=== PATIENT | male | born 1950 | race Caucasian/White ===

== ENCOUNTER 2021-05-14 05:24 | Observation (INO) ==
[2021-05-14] MEDS ORDERED: SODIUM CHLORIDE 0.9% 1000ML 1,000 ML IV ONE ×2 (05:47→06:04)
--- NOTE | 2021-05-14 05:51 | Emergency Department Note ---
Impression & Plan Sepsis, Leukocytosis, Acidosis, lactic, Syncope ED Provider Note Name: DEV DUBOSE Age: 71 Sex: M Arrives Via: Ambulance Informant: Patient, , EMS, Daughter ED Provider: Navdeep Vega MD Chief Complaint: Weakness Impression: See Above Medical Decision Makin yr old male with history JOSE, Allergies, GERD, HTN, HLP, DMII who had diarrhea/nausea illness last week, with initial resolution, but then rapid worsening over last few hours. Syncope with seizure like activity while help him up on toilet earlier. On arrival patient appears ill, dehydrated and slightly confused. Given IV fluids and work-up initiated. Labs with WBC elevation and thus blood cultures, lactate and further fluids ordered. Patient vastly improved with IV fluids. With symptoms felt that CT a/p indicated which reveals no acute findings. CT head already had been done and negative. Patient given empiric abx once lactate returned elevated though by this time he appears quite well and no distress. Patient breathing comfortably without further abdominal pain. Prior Medical Record and Triage/Nursing Notes reviewed by Me Additional history obtained from chart Given the patients BMI >30, IBW was used to calculate the 30ml/kg fluid bolus. Differentials:Vasovagal event, dehydration, infection, hypoglycemia, el ectrolyte abnormalities, cardiac sources, intracerebral event, pulmonary embolism, seizure, toxicologic, neurologic, as well as other pathologies. Vital Signs: reviewed and remarkable for no significant abnormalities Interventions: saline lock, 2.5L IV, zosyn iv, vanco iv Labs:Reviewed and remarkable for wbc elevation, lactic acid elevation Imaging:X ray results are stated below per my interpretation: Chest: 1 view: No infiltrate, no effusion, normal cardiac border. [facility] Radiologist interpretation reviewed by me: CT head no acute findings. EKG:Per My Interpretation: Indication Syncope: NSR 92 bpm, qtc 462. No Ectopy. No Ischemia. Compared to EKG 03/07/08, no significant changes. Cardiac/Tele Monitoring: Cardiac Monitoring: An Order was placed for continuous cardiac monitoring. The monitor shows a rate of 90 with a normal sinus rhythm. Consults:Dr Salome GREENE Hospitalist Plan: Disposition:Hospitalization. Condition: Good History of Present Illness:71 yr old male arrives for evaluation of syncope. Patient with 1 week of nausea, vomiting diarrhea that had started resolving and he felt well the last 2 days. Was at dinner without issue last night. Awoke at 1:30am with nausea and abdominal discomfort. Notes went to toilet and large diarrheal bowel movement. witnessed patient with 3-5 minute syncope event where he slumped against wall while sitting on toilet. They tried keeping him from falling and he has brief seizure like episodes. Slowly started coming too after this was diaphoretic and confused. EMS arrived and patient received 4mg IV Zofran and 500ml IV fluids with improvement in mental status. No head injury, headache, neck pain. He denies recent chest pain, sob, back pain, flank pain, urinary symptoms, leg swelling, rashes, fevers, chills, nor other symptoms. No history of similar Notes lightheaded with sitting up, better with laying down. Currently without nausea nor abdominal discomfort. ROS: See above HPI for pertinent positives & negatives. A total of 10 systems reviewed and were otherwise negative. Past Medical History:JOSE, Allergies, GERD, HTN, HLP, DMII Past Surgical History:Cardiac cath Family History:See Below Social History:See Below Home Medications:See Below Allergies:NKDA Vitals:Blood Pressure: 149/72, Pulse 87, RR 18, T 36.5C, O2 95% on RA Physical Exam: GENERAL: Patient is tired and dehydrated appearing and in minimal distress. Mildly pale. EYES: No scleral icterus, unremarkable pupils. ENT: Mucous membranes moist, no nasal congestion. NECK: No masses appreciated, nomeningismus, trachea is midline. RESPIRATORY: No dyspnea. Clear to auscultation and equal bilaterally. No wheeze, no rhonchi. CARDIOVASCULAR: Regular rate and rhythm.No murmurs, rubs, gallops appreciated. GASTROINTESTINAL: Abdomen soft, non-tender, no peritonitis.Bowel sounds positive and hyperactive.No masses appreciated. BACK: No midline tenderness, no CVA tenderness EXTREMITIES: Normal motion all extremities, no cyanosis, no edema. NEUROLOGIC: Alert and oriented though mildly confused/slow to respond, no acute motor or sensory deficits, no focal weakness, cranial nerves grossly intact. SKIN: No rash, no jaundice, no diaphoresis. PSYCH: Appropriate GCS: 15 ED Course: Times/Reassessments: Vastly improved with fluid resus, no headache, breathing comfortably and no further abdominal discomfort. Critical Care: I have personally spent 30 minutes of critical care time in the direct management of this patient. Sepsis requiring fluid resus and critical manage ment. This was a life/limb threatening event. This 30 minutes is in excess of all separately billable procedures. Navdeep Vega MD Past Med/Surg History Medical History Allergic rhinitis Benign essential hypertension Diabetes mellitus History of esophageal reflux Hypercholesterolemia Surgical History H/O cardiac catheterization H/O cystoscopy Family History Brother Nephrolithiasis Depression Cancer Father No problems noted. Aunt Cancer Social History Smoking Status: Never smoker Second Hand Exposure: No; Hx Alcohol Use: Yes Alcohol type: beer and hard liquor Hx Substance Use: No Preferred Language: Marshallese Communication Ability: Effective Hearing Ability: Use of Hearing Aid Medical Translator Required: No Beliefs That Will Affect Care: None marital status: Current Living Situation: Spouse Current Living Situation Comment: Lives with current occupational status: retired How many Children do You have: 3 Feels Safe at Home: Yes Childhood Exposure to Second-Hand Smoke: No Physical Activity Frequency: 1-2 Times per Week Seatbelt Use: always Sunscreen Use: Yes Assistive Devices: CPAP and Hearing Aid - Bilateral Allergies Allergies Allergy/AdvReac Type Severity Reaction Status Date / Time No Known Allergies Allergy Unknown Verified 05/14/21 07:58 Home Meds Home Medications Medication Instructions Recorded Confirmed ketoconazole 2 % shampoo 1 appln TOPICAL .COMPLEX ml 06/07/19 05/14/21 latanoprost 0.005 % eye drops 1 drops OPB HS #1 ml 07/20/19 05/14/21 (Xalatan) aspirin 81 mg tablet,delayed 81 mg PO QAM 05/14/21 05/14/21 release (Aspirin Low Dose) atorvastatin 40 mg tablet (Lipitor) 40 mg PO QAM 05/14/21 05/14/21 cholecalciferol (vitamin D3) 25 25 mcg PO QAM 05/14/21 05/14/21 mcg (1,000 unit) capsule (Vitamin D3) hydrochlorothiazide 25 mg tablet 25 mg PO QAM 05/14/21 05/14/21 lisinopril 30 mg tablet (Zestril) 30 mg PO HS 05/14/21 05/14/21 Previous Rx's Medication Instructions Recorded blood sugar diagnostic (True #100 ea 09/04/20 Metrix Glucose Test Strip) semaglutide (Ozempic) 0.25 mg SQ .weekly #1.5 ml 10/10/20 metformin 1,000 mg tablet 1,000 mg PO BID #180 tab 04/05/21 Results & Data (ED) Vital Signs Vital Signs - 24 hr 05/14/21 06:49 05/14/21 06:50 05/14/21 07:00 Pulse Rate 87 86 Pulse Rate [Finger] 87 Pulse Rate from SpO2 Sensor 87 86 Respiratory Rate 15 18 16 Respiratory Depth Normal Blood Pressure 149/72 H 144/70 H Blood Pressure [Right Arm] 149/72 H Blood Pressure Mean 97 94 Blood Pressure Mean [Right Arm] 97 Pulse Oximetry 96 95 96 Oxygen Delivery Method Room Air 05/14/21 07:30 Pulse Rate 84 Pulse Rate [Finger] Pulse Rate from SpO2 Sensor 84 Respiratory Rate 13 Respiratory Depth Blood Pressure 141/67 H Blood Pressure [Right Arm] Blood Pressure Mean 91 Blood Pressure Mean [Right Arm] Pulse Oximetry 95 Oxygen Delivery Method Laboratory Data Result diagrams: 05/14/21 05:36 05/14/21 05:36 Lab Results 05/14/21 05/14/21 05/14/21 Range/Units 05:36 05:36 05:40 WBC 23.29 H (4.8-10.8) K/uL RBC 4.69 L (4.7-6.1) M/uL Hgb 14.2 (14.0-18.0) g/dL Hct 44.0 (42-52) % MCV 93.8 (80-100) fL MCH 30.3 (25-34) pg MCHC 32.3 (32-36) g/dL RDW Std Deviation 49.8 H (36.4-46.3) fL RDW Coeff of Lauren 14.6 H (11.5-14.5) % Plt Count 274 (130-400) K/uL MPV 10.6 H (7.4-10.4) fL Immature Gran % (Auto) 0.9 % Neut % (Auto) 71.0 % Lymph % (Auto) 9.1 % [place] % (Auto) 7.7 % Eos % (Auto) 11.1 % Baso % (Auto) 0.2 % Neut # (Auto) 16.53 H (1.4-6.5) K/uL Lymph # (Auto) 2.11 (1.2-3.4) K/uL [place] # (Auto) 1.79 H (0.11-0.59) K/uL Eos # (Auto) 2.59 H (0-0.5) K/uL Baso # (Auto) 0.05 (0-0.2) K/uL Immature Gran # (Auto) 0.22 H (0.00-0.02) K/uL Sodium 135 L (136-145) mmol/L Potassium 4.2 (3.5-5.1) mmol/L Chloride 101 (98-107) mmol/L Carbon Dioxide 25 (21-32) mmol/L Anion Gap 9.0 (3-11) BUN 25 H (7-18) mg/dl Creatinine 1.55 H (0.6-1.4) mg/dl Est Cr Clr Drug Dosing Not Reportable Est GFR ( Amer) 50.7 ml/min Est GFR (Non-Af Amer) 43.8 ml/min BUN/Creatinine Ratio 16.3 (10-20) Glucose 199 H (70-99) mg/dl POC Glucose (70-99) mg/dl Lactate (0.4-2.0) mmol/L Calcium 9.1 (8.5-10.1) mg/dl Magnesium 1.7 L (1.8-2.4) mg/dl Total Bilirubin 0.4 (0.2-1) mg/dl Direct Bilirubin < 0.1 (0-0.2) mg/dl AST 42 H (15-37) U/L ALT 72 (12-78) U/L Alkaline Phosphatase 88 (45-117) U/L Troponin I < 0.015 (0-0.045) ng/ml Total Protein 8.4 H (6.4-8.2) gm/dl Albumin 3.7 (3.4-5.0) gm/dl Lipase 185 (73-393) U/L Urine Color Urine Appearance (Clear) Urine pH (4.5-7.5) Ur Specific [place] (1.000-1.030) Urine Protein (Negative) Urine Glucose (UA) (Negative) Urine Ketones (Negative) Urine Blood (Negative) Urine Nitrite (Negative) Urine Bilirubin (Negative) Urine Urobilinogen (Negative) Ur Leukocyte Esterase (Negative) Lyme Disease IgG Ab Negative (Negative) Lyme Disease IgM Ab Negative (Negative) COVID-19 Eval Order SARS-CoV-2 (PCR) (Negative) 05/14/21 05/14/21 05/14/21 Range/Units 05:43 06:14 06:14 WBC (4.8-10.8) K/uL RBC (4.7-6.1) M/uL Hgb (14.0-18.0) g/dL Hct (42-52) % MCV (80-100) fL MCH (25-34) pg MCHC (32-36) g/dL RDW Std Deviation (36.4-46.3) fL RDW Coeff of Lauren (11.5-14.5) % Plt Count (130-400) K/uL MPV (7.4-10.4) fL Immature Gran % (Auto) % Neut % (Auto) % Lymph % (Auto) % [place] % (Auto) % Eos % (Auto) % Baso % (Auto) % Neut # (Auto) (1.4-6.5) K/uL Lymph # (Auto) (1.2-3.4) K/uL [place] # (Auto) (0.11-0.59) K/uL Eos # (Auto) (0-0.5) K/uL Baso # (Auto) (0-0.2) K/uL Immature Gran # (Auto) (0.00-0.02) K/uL Sodium (136-145) mmol/L Potassium (3.5-5.1) mmol/L Chloride (98-107) mmol/L Carbon Dioxide (21-32) mmol/L Anion Gap (3-11) BUN (7-18) mg/dl Creatinine (0.6-1.4) mg/dl Est Cr Clr Drug Dosing Est GFR ( Amer) ml/min Est GFR (Non-Af Amer) ml/min BUN/Creatinine Ratio (10-20) Glucose (70-99) mg/dl POC Glucose 169 H (70-99) mg/dl Lactate (0.4-2.0) mmol/L Calcium (8.5-10.1) mg/dl Magnesium (1.8-2.4) mg/dl Total Bilirubin (0.2-1) mg/dl Direct Bilirubin (0-0.2) mg/dl AST (15-37) U/L ALT (12-78) U/L Alkaline Phosphatase (45-117) U/L Troponin I (0-0.045) ng/ml Total Protein (6.4-8.2) gm/dl Albumin (3.4-5.0) gm/dl Lipase (73-393) U/L Urine Color Urine Appearance (Clear) Urine pH (4.5-7.5) Ur Specific [place] (1.000-1.030) Urine Protein (Negative) Urine Glucose (UA) (Negative) Urine Ketones (Negative) Urine Blood (Negative) Urine Nitrite (Negative) Urine Bilirubin (Negative) Urine Urobilinogen (Negative) Ur Leukocyte Esterase (Negative) Lyme Disease IgG Ab (Negative) Lyme Disease IgM Ab (Negative) COVID-19 Eval Order Covid19 at [facility] SARS-CoV-2 (PCR) NEGATIVE (Negative) 05/14/21 05/14/21 Range/Units 06:49 07:40 WBC (4.8-10.8) K/uL RBC (4.7-6.1) M/uL Hgb (14.0-18.0) g/dL Hct (42-52) % MCV (80-100) fL MCH (25-34) pg MCHC (32-36) g/dL RDW Std Deviation (36.4-46.3) fL RDW Coeff of Lauren (11.5-14.5) % Plt Count (130-400) K/uL MPV (7.4-10.4) fL Immature Gran % (Auto) % Neut % (Auto) % Lymph % (Auto) % [place] % (Auto) % Eos % (Auto) % Baso % (Auto) % Neut # (Auto) (1.4-6.5) K/uL Lymph # (Auto) (1.2-3.4) K/uL [place] # (Auto) (0.11-0.59) K/uL Eos # (Auto) (0-0.5) K/uL Baso # (Auto) (0-0.2) K/uL Immature Gran # (Auto) (0.00-0.02) K/uL Sodium (136-145) mmol/L Potassium (3.5-5.1) mmol/L Chloride (98-107) mmol/L Carbon Dioxide (21-32) mmol/L Anion Gap (3-11) BUN (7-18) mg/dl Creatinine (0.6-1.4) mg/dl Est Cr Clr Drug Dosing Est GFR ( Amer) ml/min Est GFR (Non-Af Amer) ml/min BUN/Creatinine Ratio (10-20) Glucose (70-99) mg/dl POC Glucose (70-99) mg/dl Lactate 3.5 H* (0.4-2.0) mmol/L Calcium (8.5-10.1) mg/dl Magnesium (1.8-2.4) mg/dl Total Bilirubin (0.2-1) mg/dl Direct Bilirubin (0-0.2) mg/dl AST (15-37) U/L ALT (12-78) U/L Alkaline Phosphatase (45-117) U/L Troponin I (0-0.045) ng/ml Total Protein (6.4-8.2) gm/dl Albumin (3.4-5.0) gm/dl Lipase (73-393) U/L Urine Color Yellow Urine Appearance Clear (Clear) Urine pH 5.5 (4.5-7.5) Ur Specific [place] 1.044 H (1.000-1.030) Urine Protein Negative (Negative) Urine Glucose (UA) Negative (Negative) Urine Ketones Negative (Negative) Urine Blood Negative (Negative) Urine Nitrite Negative (Negative) Urine Bilirubin Negative (Negative) Urine Urobilinogen Negative (Negative) Ur Leukocyte Esterase Negative (Negative) Lyme Disease IgG Ab (Negative) Lyme Disease IgM Ab (Negative) COVID-19 Eval Order SARS-CoV-2 (PCR) (Negative) Administered Medications Aspirin (Aspirin 81 Mg Ectab) [facility] [place] Stop: 06/13/21 14:59 Last Admin: 05/14/21 16:02 Dose: 81 mg Documented by: [id number] Atorvastatin Calcium (Atorvastatin 40 Mg Tab) 40 mg PO QAM [facility] Stop: 06/13/21 14:59 Last Admin: 05/14/21 16:03 Dose: 40 mg Documented by: [id number] Enoxaparin Sodium (Enoxaparin Inj 40 Mg/0.4 Ml Syr) 40 mg SQ Q24H [facility] Stop: 06/13/21 14:59 Last Admin: 05/14/21 16:03 Dose: 40 mg Documented by: [id number] Pantoprazole Sodium 40 mg/ (Syringe) 10 mls @ 5 mls/min IV BID [facility] Stop: 06/13/21 20:59 Last Admin: 05/14/21 21:08 Dose: 5 mls/min Documented by: [id number] Piperacillin Sod/Tazobactam (Sod 3.375 gm/ Dextrose) 115 mls @ 28.75 mls/hr IV Q8H [facility]; Protocol Stop: 05/24/21 13:59 Last Infusion: 05/15/21 01:01 Dose: 0 mls/hr Documented by: [id number] Admin: 05/14/21 21:09 Dose: 28.8 mls/hr Documented by: [id number] Infusion: 05/14/21 20:00 Dose: 0 mls/hr Documented by: [id number] Admin: 05/14/21 16:02 Dose: 28.8 mls/hr Documented by: [id number] Vancomycin HCl 1,000 mg/ (Sodium Chloride) 270 mls @ 200 mls/hr IV Q18H [facility] Stop: 05/25/21 01:59 Last Infusion: 05/15/21 03:20 Dose: 0 mls/hr Documented by: [id number] Admin: 05/15/21 01:59 Dose: 200 mls/hr Documented by: [id number] Insulin Aspart (Insulin Aspart 100 Units/Ml 3 Ml Pen) 0 units SC Q6 [facility] Stop: 06/13/21 11:59 Last Admin: 05/15/21 00:37 Dose: Not Given Documented by: [id number] Cosigned by: [id number] Admin: 05/14/21 18:06 Dose: Not Given Documented by: [id number] Admin: 05/14/21 13:55 Dose: Not Given Documented by: [id number] Insulin Glargine (Insulin Glargine Solostar 100 Units/Ml 3 Ml Pen) 0 units SC B ID [facility]; Protocol Stop: 06/13/21 20:59 Last Admin: 05/14/21 21:40 Dose: Not Given Documented by: [id number] Latanoprost (Latanoprost 0.005% Op Soln 2.5 Ml Btl) 1 drops OP [facility] Stop: 06/13/21 20:59 Last Admin: 05/14/21 21:08 Dose: 1 drops Documented by: [id number] Lisinopril (Lisinopril 10 Mg Tab) 10 mg PO [facility] Stop: 06/13/21 20:59 Last Admin: 05/14/21 21:08 Dose: 10 mg Documented by: [id number] Discontinued Medications Sodium Chloride (Nss 1000ml) 1,000 mls @ 999 mls/hr IV .Q1H1M ONE Stop: 05/14/21 06:47 Last Infusion: 05/14/21 08:22 Dose: 0 mls/hr Documented by: [id number] Admin: 05/14/21 05:54 Dose: 999 mls/hr Documented by: [id number] Sodium Chloride (Nss 1000ml) 1,000 mls @ 999 mls/hr IV .Q1H1M ONE Stop: 05/14/21 07:04 Last Infusion: 05/14/21 08:22 Dose: 0 mls/hr Documented by: [id number] Admin: 05/14/21 06:42 Dose: 999 mls/hr Documented by: [id number] Sodium Chloride (Nss 1000ml) 500 mls @ 999 mls/hr IV .Q31M ONE Stop: 05/14/21 07:53 Last Infusion: 05/14/21 08:22 Dose: 0 mls/hr Documented by: [id number] Admin: 05/14/21 07:45 Dose: 999 mls/hr Documented by: [id number] Piperacillin Sod/Tazobactam Sod (Zosyn) 4.5 gm in 120 mls @ 240 mls/hr IV NOW ONE Stop: 05/14/21 07:52 Last Infusion: 05/14/21 08:22 Dose: 0 mls/hr Documented by: [id number] Admin: 05/14/21 07:45 Dose: 240 mls/hr Documented by: [id number] Vancomycin HCl 1,750 mg/ (Sodium Chloride) 535 mls @ 200 mls/hr IV NOW ONE Stop: 05/14/21 10:03 Last Infusion: 05/14/21 11:42 Dose: 0 mls/hr Documented by: [id number] Admin: 05/14/21 08:33 Dose: 200 mls/hr Documented by: [id number] Sodium Chloride (Nss 1000ml) 1,000 mls @ 100 mls/hr IV .Q10H [facility]EV[facility] Stop: 05/14/21 18:44 Last Infusion: 05/14/21 23:00 Dose: 0 mls/hr Documented by: [id number] Admin: 05/14/21 11:41 Dose: 100 mls/hr Documented by: [id number] Magnesium Sulfate/Dextrose (Magnesium Sulfate / D5w) 1 gm in 100 mls @ 50 mls/hr IV 1500 ONE Stop: 05/14/21 16:59 Last Infusion: 05/14/21 18:06 Dose: 0 mls/hr Documented by: [id number] Admin: 05/14/21 16:02 Dose: 50 mls/hr Documented by: [id number] Ioversol (Optiray 320 100ml) 100 ml IV ONCE ONE Stop: 05/14/21 06:38 Last Admin: 05/14/21 06:37 Dose: 93 ml Documented by: [id number] Imaging Data Radiologist's Impression: Chest X-Ray 05/14/21 05:46 XR chest 1V portable CLINICAL HISTORY: syncope, ams COMPARISON STUDY: Chest radiograph March 07, 2008. FINDINGS: Lung volumes are normal. Lungs are clear. There is no pneumothorax or pleural effusion. Cardiac size is normal. Mediastinal contours are normal. There is no evidence for pulmonary edema. IMPRESSION: No acute cardiopulmonary findings. ACT 112: Negative or not required by law. Electronically signed by: Pete Rivers M.D. 05/14/2021 6:[address] 05/14/21 05:46 CT OF THE HEAD WITHOUT CONTRAST CLINICAL HISTORY: syncope, seizure COMPARISON STUDY: No previous studies for comparison. CT DOSE: 614.27 mGy.cm TECHNIQUE: Helical axial images of the head were obtained without IV contrast. Automated exposure control was utilized for the study. A dose lowering technique was utilized adhering to the principles of ALARA. FINDINGS: No acute intracranial hemorrhage, midline shift or mass effect is present. The ventricular system is unremarkable. The basal cisterns are patent. No extra-axial collections are present. There are no findings to suggest acute dural sinus thrombosis or acute territorial infarct. No significant calvarial abnormalities are present. Visualized portions of the sinuses and mastoid air cells are clear. IMPRESSION: No acute intracranial findings. ACT 112: Negative or not required by law. Electronically signed by: Pete Rivers M.D. 05/14/2021 6:33 AM Discharge Plan Visit Data Chief Complaint: Diarrhea Stated Complaint: FLU LIKE SYMPTOMS ED Provider: Navdeep Vega Discharge Problem: Sepsis, Leukocytosis, Acidosis, lactic, Syncope Patient Disposition: Admitted As Inpatient Discharge Instructions Interventions: ED Discharge Assessment Last Done: 05/14/21 11:05 Discharge Problem: Sepsis Qualifiers: Sepsis type: sepsis due to unspecified organism Sepsis acute organ dysfunction status: with acute organ dysfunction Severe sepsis acute organ dysfunction type: encephalopathy Severe sepsis shock status: without septic shock Qualified Code(s): A41.9 - Sepsis, unspecified organism Leukocytosis Qualifiers: Leukocytosis type: unspecified Qualified Code(s): D72.829 - Elevated white blood cell count, unspecified Syncope Qualifiers: Syncope type: unspecified Qualified Code(s): R55 - Syncope and collapse
[2021-05-14 05:54] LABS: Basophils # (auto) 0.05 K/uL (0-0.2); Basophils % (auto) 0.2 %; Eosinophils # (auto) 2.59 K/uL (0-0.5); Eosinophils % (auto) 11.1 %; Hemoglobin 14.2 g/dL (14.0-18.0); Immature Granulocytes # (auto) 0.22 K/uL (0.00-0.02); Immature Granulocytes % (auto) 0.9 %; Lymphocytes # (auto) 2.11 K/uL (1.2-3.4); Lymphocytes % (auto) 9.1 %; Mean Corpuscular Hemoglobin 30.3 pg (25-34); Mean Corpuscular Hgb Conc 32.3 g/dL (32-36); Mean Corpuscular Volume 93.8 fL (80-100); Mean Platelet Volume 10.6 fL (7.4-10.4); Monocytes # (auto) 1.79 K/uL (0.11-0.59); Monocytes % (auto) 7.7 %; Neutrophils # (auto) 16.53 K/uL (1.4-6.5); Platelet Count 274 K/uL (130-400); RDW Coefficient of Variation 14.6 % (11.5-14.5); RDW Standard Deviation 49.8 fL (36.4-46.3); Red Blood Count 4.69 M/uL (4.7-6.1); White Blood Count 23.29 K/uL (4.8-10.8)
[2021-05-14 06:02] LABS: Alanine Aminotransferase 72 U/L (12-78); Albumin Level 3.7 gm/dl (3.4-5.0); Aspartate Aminotransferase 42 U/L (15-37); BUN Creatinine Ratio 16.3 (10-20); Bilirubin Direct < 0.1 mg/dl (0-0.2); Blood Urea Nitrogen 25 mg/dl (7-18); Calcium 9.1 mg/dl (8.5-10.1); Carbon Dioxide 25 mmol/L (21-32); Chloride 101 mmol/L (98-107); Est GFR (African American) 50.7 ml/min; Est GFR (Non-African American) 43.8 ml/min; Glucose 199 mg/dl (70-99); Lipase 185 U/L (73-393); Magnesium 1.7 mg/dl (1.8-2.4); Potassium 4.2 mmol/L (3.5-5.1); Sodium 135 mmol/L (136-145)
[2021-05-14 06:07] LABS: Alkaline Phosphatase 88 U/L (45-117); Bilirubin,Total 0.4 mg/dl (0.2-1); Total Protein 8.4 gm/dl (6.4-8.2); Troponin I < 0.015 ng/ml (0-0.045)
--- NOTE | 2021-05-14 06:33 | XRay Report ---
XR chest 1V portable CLINICAL HISTORY: syncope, ams COMPARISON STUDY: Chest radiograph March 07, 2008. FINDINGS: Lung volumes are normal. Lungs are clear. There is no pneumothorax or pleural effusion. Car diac size is normal. Mediastinal contours are normal. There is no evidence for pulmonary edema. IMPRESSION: No acute cardiopulmonary findings. ACT 112: Negative or not required by law. Electronically signed by: Pete Rivers M.D. 05/14/2021 6:31 AM
--- NOTE | 2021-05-14 06:35 | CT Scan Report ---
CT OF THE HEAD WITHOUT CONTRAST CLINICAL HISTORY: syncope, seizure COMPARISON STUDY: No previous studies for comparison. CT DOSE: 614.27 mGy.cm TECHNIQUE: Helical axial images of the head were obtained without IV contrast. Automated exposure con trol was utilized for the study. A dose lowering technique was utilized adhering to the principles o f ALARA. FINDINGS: No acute intracranial hemorrhage, midline shift or mass effect is present. The ventricular system is unremarkable. The basal cisterns are patent. No extra-axial collections are present. There are no findings to suggest acute dural sinus thrombosis or acute territorial infarct. No significant calvarial abnormalities are present. Visualized portions of the sinuses and mastoid air cells are victorino ar. IMPRESSION: No acute intracranial findings. ACT 112: Negative or not required by law. Electronically signed by: Pete Rivers M.D. 05/14/2021 6:33 AM
[2021-05-14] MEDS ORDERED: OPTIRAY 320 100ml IV ONE (06:37)
[2021-05-14] MEDS ORDERED: SODIUM CHLORIDE 0.9% 1000ML 500 ML IV ONE (07:23)
[2021-05-14] MEDS ORDERED: VANCOMYCIN HCL 1,750 MG in SODIUM CHLORIDE 0.9% 500 ML IV ONE (07:23)
[2021-05-14] MEDS ORDERED: VANCOMYCIN CONSULT ACTIVE PRN ×2 (07:23→13:54)
[2021-05-14] MEDS ORDERED: PIPERACILL/TAZOBAC CONSULT ACTIVE PRN ×3 (07:23→13:54)
[2021-05-14] MEDS ORDERED: PIPERACILLIN/TAZOBACTAM 4.5 GM/120 ML BAG IV ONE (07:23)
[2021-05-14] MEDS ORDERED: PHARMACY GLYCEMIC MGMT CONSULT STA (07:51)
--- NOTE | 2021-05-14 08:00 | History & Physical Report ---
Date of Service May 14, 2021 Assessment & Plan (1) Sepsis: Plan: Patient with what sounds like a hypotensive episode at home. There may been some tonic-clonic movements according to the . Has elevated lactic acid and leukocytosis on presentation with unclear source although abdomen pelvis CT and urinalysis are not completely analyzed yet. Initially chest x-ray is unremarkable and there is no other clinical suspicion of infection outside of these 2 sources. Empirically given vancomycin and Zosyn in the emergency department. Without pulmonary source or skin source we'll hold off on the vancomycin but we will continue Zosyn therapy for intra-abdominal urine coverage. Stool studies will be sent and pending He was volume resuscitated and will be have a repeat lactic acid (2) Benign essential hypertension: Plan: Patient's lisinopril will be reduced from 30-10 continue metoprolol, holding hydrochlorothiazide with volume resuscitation (3) Diabetes mellitus: Plan: Stop Metformin and semaglutide insulin sliding scale with glycemic management (4) Obstructive sleep apnea: Plan: offer noninvasive positive intervention lesion at night (5) DVT prophylaxis: Plan: Lovenox therapy for DVT prevention History of Present Illness Primary Care Provider: Te Izaguirre MD 71 yr old male with history JOSE, Allergies, GERD, HTN, HLP, DMII who had diarrhea/nausea illness last week, with initial resolution, but then rapid worsening over last few hours. Syncope with seizure like activity while help him up on toilet earlier. On arrival patient appears ill, dehydrated and slightly confused. Given IV fluids and work-up initiated. Labs with WBC elevation and thus blood cultures, lactate and further fluids ordered. Patient vastly improved with IV fluids. With symptoms felt that CT a/p results are pending at this time . CT head and cxr already had been done and negative. P atient given empiric abx once lactate returned elevated though by this time he appears quite well and no distress. Patient breathing comfortably without further abdominal pain. Both episodes of diarrhea were preceded 2 days prior or day and a half prior by attending a worship related community event which included food. Reportedly no one else was ill. None of his family members all had any illness and they had eaten similar food that he had. Currently he is resting comfortably Allergies Allergy/AdvReac Type Severity Reaction Status Date / Time No Known Allergies Allergy Unknown Verified 05/14/21 07:58 Home Medications Medication Instructions Recorded Confirmed Type ketoconazole 2 % shampoo 1 appln TOPICAL .COMPLEX ml 06/07/19 05/14/21 History latanoprost 0.005 % eye drops 1 drops OPB HS #1 ml 07/20/19 05/14/21 History (Xalatan) blood sugar diagnostic (True #100 ea 09/04/20 05/14/21 Rx Metrix Glucose Test Strip) semaglutide (Ozempic) 0.25 mg SQ .weekly #1.5 ml 10/10/20 05/14/21 Rx metformin 1,000 mg tablet 1,000 mg PO BID #180 tab 04/05/21 05/14/21 Rx aspirin 81 mg tablet,delayed 81 mg PO QAM 05/14/21 05/14/21 History release (Aspirin Low Dose) atorvastatin 40 mg tablet (Lipitor) 40 mg PO QAM 05/14/21 05/14/21 History cholecalciferol (vitamin D3) 25 25 mcg PO QAM 05/14/21 05/14/21 History mcg (1,000 unit) capsule (Vitamin D3) hydrochlorothiazide 25 mg tablet 25 mg PO QAM 05/14/21 05/14/21 History lisinopril 30 mg tablet (Zestril) 30 mg PO HS 05/14/21 05/14/21 History Past Med/Surg History Medical History (Updated 05/14/21 @ 07:58 by Kurtis Mcmahon MD) Allergic rhinitis Benign essential hypertension Diabetes mellitus History of esophageal reflux Hypercholesterolemia Surgical History (Updated 06/07/19 @ 12:03 by Te Izaguirre MD) H/O cardiac catheterization H/O cystoscopy Family History (Updated 06/07/19 @ 12:01 by Te Izaguirre MD) Brother Nephrolithiasis Depression Cancer Father No problems noted. Aunt Cancer Social History (Updated 09/24/20 @ 10:28 by Noa Mcdonough MA) Smoking Status: Never smoker Second Hand Exposure: No; Hx Alcohol Use: No Hx Substance Use: No Preferred Language: Divehi Communication Ability: Effective Hearing Ability: Use of Hearing Aid Fish Trapper Required: No marital status: Current Living Situation: Family Current Living Situation Comment: spouse and adult daughter current occupational status: retired How many Children do You have: 3 Feels Safe at Home: Yes Childhood Exposure to Second-Hand Smoke: No Physical Activity Frequency: 1-2 Times per Week Seatbelt Use: always Sunscreen Use: Yes Review of Systems Review of Systems: Mild distress and fatigue episode of syncope with some myoclonic jerking no headache, no visual changes no speech or swallowing issues no chest pain, pressure or palpitations no shortness of breath, cough or wheezes Initially nausea vomiting diarrhea now with abdominal distention and bloating no dysuria, hematuria or frequency no focal joint pain or swelling no back pain, CVA tenderness or radicular pain no bruising, bleeding or rashes no focal signs of weakness or numbness or altered sensation no complaints of anxiety or depression.. Physical Exam Physical Exam: The patient appeared well nourished and normally developed. Vital signs as documented. Head exam is normocephalic atraumatic Neck is without JVD, thyromegaly, or carotid bruits. Lungs are clear to auscultation, no focal loss of breath sounds Cardiac exam, Rhythm is regular.. No murmurs, rubs or gallops. Abdominal exam reveals hyperactive bowel sounds, soft distended tympanic Extremities are nonedematous and both pedal pulses are present Neurologic exam is alert and oriented, no focal loss of strength or sensation Skin is without bruises or rashes Psychologically is without concerns for anxiety or depression Results & Data Results & Data ([facility]) Vital Signs (Past 12 Hours) Vital Signs Temp Pulse Pulse Resp BP BP Pulse Ox 05/14/21 06:50 87 18 149/72 H 95 05/14/21 06:49 87 15 149/72 H 96 05/14/21 05:55 97.7 F 86 86 134/60 134/60 96 05/14/21 05:27 97 H 18 134/60 93 Diagnostic Findings Chest X-Ray 05/14/21 05:46 XR chest 1V portable CLINICAL HISTORY: syncope, ams COMPARISON STUDY: Chest radiograph March 07, 2008. FINDINGS: Lung volumes are normal. Lungs are clear. There is no pneumothorax or pleural effusion. Cardiac size is normal. Mediastinal contours are normal. There is no evidence for pulmonary edema. IMPRESSION: No acute cardiopulmonary findings. ACT 112: Negative or not required by law. Electronically signed by: Pete Rivers M.D. 05/14/2021 6:[address] 05/14/21 05:46 CT OF THE HEAD WITHOUT CONTRAST CLINICAL HISTORY: syncope, seizure COMPARISON STUDY: No previous studies for comparison. CT DOSE: 614.27 mGy.cm TECHNIQUE: Helical axial images of the head were obtained without IV contrast. Automated exposure control was utilized for the study. A dose lowering technique was utilized adhering to the principles of ALARA. FINDINGS: No acute intracranial hemorrhage, midline shift or mass effect is p resent. The ventricular system is unremarkable. The basal cisterns are patent. No extra-axial collections are present. There are no findings to suggest acute dural sinus thrombosis or acute territorial infarct. No significant calvarial abnormalities are present. Visualized portions of the sinuses and mastoid air cells are clear. IMPRESSION: No acute intracranial findings. Electronically signed by: Pete Rivers M.D. 05/14/2021 6:33 AM Code Status & VTE Plan VTE Prophylaxis Plan VTE Prophylaxis will be ordered: Yes PG Care Time/CCT Total # of Minutes Spent Total Time Spent with Patient: Total time spent is greater than 50% in coordination of care (as documented) at patient's floor/unit and/or counseling patient: Coding Level of Care Code INT OBSERVATION CARE 50M LVL 2 Diagnoses Obstructive sleep apnea G47.33 Benign essential hypertension I10 Diabetes mellitus E11.9 Sepsis A41.9; R65.20; G93.40 Sepsis acute organ dysfunction status: with acute organ dysfunction Sepsis type: sepsis due to unspecified organism Severe sepsis acute organ dysfunction type: encephalopathy Severe sepsis shock status: without septic shock DVT prophylaxis Z29.9 (1) Sepsis Sepsis acute organ dysfunction status: with acute organ dysfunction Sepsis type: sepsis due to unspecified organism Severe sepsis acute organ dysfunction type: encephalopathy Severe sepsis shock status: without septic shock Qualified Code(s): A41.9 - Sepsis, unspecified organism; R65.20 - Severe sepsis without septic shock; G93.40 - Encephalopathy, unspecified
[2021-05-14] MEDS ORDERED: SODIUM CHLORIDE 0.9% 1000ML 1,000 ML IV SCH (08:45)
[2021-05-14 08:48] LABS: Appearance Urine Clear (Clear); Bilirubin Urine Negative (Negative); Blood Urine Negative (Negative); Color Urine Yellow; Glucose Urine UA Negative (Negative); Ketones Urine Negative (Negative); Leukocyte Esterase Urine Negative (Negative); Nitrite Urine Negative (Negative); Protein Urine Negative (Negative); Specific Gravity Urine 1.044 (1.000-1.030); Urobilinogen Urine Negative (Negative); pH Urine 5.5 (4.5-7.5)
--- NOTE | 2021-05-14 08:50 | Electrocardiogram Report ---
Test Reason : Blood Pressure : / mmHG Vent. Rate : 092 BPM Atrial Rate : 092 BPM P-R Int : 154 ms QRS Dur : 080 ms QT Int : 374 ms P-R-T Axes : 040 082 048 degrees QTc Int : 462 ms Normal sinus rhythm Low voltage QRS Borderline ECG When compared with ECG of 07-MAR-2008 10:43, No significant change was found Confirmed by Zachery Ly ([id number]) on 05/14/2021 8:50:18 AM Referred By: REFERRED SELF Confirmed By:Zachery Ly
--- NOTE | 2021-05-14 10:18 | CT Scan Report ---
CT abd pelvis IV con only CLINICAL HISTORY: Diffuse abdominal pain, fevers, wbc elevation COMPARISON STUDY: None. TECHNIQUE: A dose lowering technique was utilized adhering to the principles of ALARA. CT DOSE: 1006.84 mGy.cm FINDINGS: Lower chest: Minimal atelectasis at dependent portions of bilateral lower lobes.. Liver: Mild diffuse decrease in attenuation of liver parenchyma. Portal venous gas is seen predominan tly within left and caudate lobe of the liver. No focal focal liver lesions are seen. Gallbladder: Is fluid-filled with few gallstones within its dependent portion. Spleen: Normal in size and attenuation. Pancreas: Unremarkable. Adrenal glands: Unremarkable. Kidneys: No evidence of hydronephrosis. Punctate nonobstructive calculus is seen within left renal pe lvis. There is homogeneous parenchymal enhancement is seen bilaterally.Small hypoattenuating lesion i s seen within left renal parenchyma measuring 5 mm in size which could represent small cyst. Pelvic viscera: Urinary bladder is adequately filled with urine. Prostate gland is not significantly enlarged. Small fat-containing bilateral inguinal hernias are seen. Bowel: Stomach wall is normal in size however there is pneumatosis of the gastric wall with extension of the gas to the portal vein. Small fat containing hiatal hernia. Bowel loops are nondilated. Duode nal diverticulum is seen. Loops of small and proximal large bowel are fluid-filled which could be see n in diarrheal state. Appendix shows normal morphology and gas filled. Diverticulosis of sigmoid colo n is seen without evidence of diverticulitis. Peritoneum: There is no intraperitoneal free air or abdominal ascites. Vasculature: Abdominal aorta is normal in course and caliber with scattered partially calcified plaqu es within its wall. Adenopathy: None. Skeletal structures: Degenerative changes of the spine. IMPRESSION: 1. Pneumatosis involving stomach wall without its thickening and without surrounding fat stranding. Also there is extension of the gas to the portal vein and left lobe of the liver. Above-mentioned fin dings are nonspecific however ischemia cannot be completely excluded. Findings were discussed with Dr Blu Mora at 10:13 hours on May 14, 2021 2. Atherosclerosis. 3. Small hiatal hernia. Nondilated loops of bowel. Duodenal diverticulum. Diverticulosis of sigmoid colon without evidence of diverticulitis. 4. Additional findings as above. ACT 112: Negative or not required by law. The above report was generated using voice recognition software. It may contain grammatical, syntax o r spelling errors. Electronically signed by: Belkys Moon DO 05/14/2021 10:17 AM
[2021-05-14] MEDS ORDERED: PHARMACY GLYCEMIC MGMT CONSULT SCH (11:00)
--- NOTE | 2021-05-14 11:13 | Surgery Consultation ---
Date of Consultation May 14, 2021 Assessment & Plan (1) Nausea vomiting and diarrhea: This is a 71yM with a PMH of DM, HTN, JOSE who presented to the [facility] ED on 05/14/21 with complaints of nausea/vomiting and diarrhea that began this AM. Patient has a history of similar symptoms almost 2 weeks ago now that had self resolved. He presented to the ER today for worsening GI symptoms, along with loss of consciousness as witnessed by his with concern for seizure activity. In the ER patient underwent a CT a/p that revealed "pneumatosis involving stomach wall without its thickening and without surrounding fat stranding. Also there is extension of the gas to the portal vein and left lobe o f the liver." Patient's labs notable for a WBC 23, Lactate: 3.3, Cr: 1.55. Vital signs are stable and patient afebrile. On examination patient's abdomen is softly distended, with mild discomfort elicited in the LLQ. No epigastric discomfort. Discussed with hospitalists who also spoke with GI and noted gas in the stomach wall can be seen in patient's with history of forceful and frequent retching. We will plan on close monitoring with supportive care for now in way of NPO, IVF resuscitation, and add IV PPI. We will trend labs as they are likely elevated in the setting of dehydration given multiple bouts of n/v/d. Okay to continue on zosyn for now. No plans for acute surgical intervention at this time. as above. no emergent indication for surgical intervention. will follow closely. History of Present Illness Attending Physician: Kurtis Mcmahon MD History of Present Illness This is a 71yM with a PMH of DM, HTN, JOSE who presented to the [facility] ED on 05/14/21 with complaints of nausea/vomiting and diarrhea. Patient states two wknds ago he was at a graduation green party where the was communal food that he ate. On that Thursday he developed vomiting and diarrhea over the course of two days. Per his bouts of emesis were very forceful. He slowly reintroduced bland foods and was starting to feel better and have more formed BM's. Then this past weekend he attended another gather (family reunion) and ate food at the event. He was feeling okay until this AM around 1:30 he woke up in the sweats. About an hour later he went to the bathroom because his stomach was churning and he ultimately developed multiple bouts of vomiting and diarrhea. He felt associated sweats/chills and weak along with this. At one point the patient's checked on him and noted that he lost consciousness while sitting on the toilet. She saw his eyes roll back in his head, he was non communicative, and could not control his body. Meanwhile he continued to actively have diarrhea and vomit. She thought he was having a seizure. He was then transferred to the ER for further evaluation. In the ER patient underwent a CT a/p that revealed "Pneumatosis involving stomach wall without its thickening and without surrounding fat stranding. Also there is extension of the gas to the portal vein and left lobe of the liver." Head CT was unremarkable. Patient denies any sick contacts or anyone getting sick at either of the events he was at. He reports a history of frequent belching and passing flatus and he takes Tums for quite often. He notes he does have trouble with some spicy foods and BBQs he tries to stay away from. He never had an EGD nor followed with a GI doctor other than for routine colonoscopy in the past. Patient states he has not felt like himself for quite a while. He denies any history of stomach ulcers. No prior abdominal surgical history. Allergies Allergy/AdvReac Type Severity Reaction Status Date / Time No Known Allergies Allergy Unknown Verified 05/14/21 07:58 Home Medications Medication Instructions Recorded Confirmed Type ketoconazole 2 % shampoo 1 appln TOPICAL .COMPLEX ml 06/07/19 05/14/21 History latanoprost 0.005 % eye drops 1 drops OPB HS #1 ml 07/20/19 05/14/21 History (Xalatan) blood sugar diagnostic (True #100 ea 09/04/20 05/14/21 Rx Metrix Glucose Test Strip) semaglutide (Ozempic) 0.25 mg SQ .weekly #1.5 ml 10/10/20 05/14/21 Rx metformin 1,000 mg tablet 1,000 mg PO BID #180 tab 04/05/21 05/14/21 Rx aspirin 81 mg tablet,delayed 81 mg PO QAM 05/14/21 05/14/21 History release (Aspirin Low Dose) atorvastatin 40 mg tablet (Lipitor) 40 mg PO QAM 05/14/21 05/14/21 History cholecalciferol (vitamin D3) 25 25 mcg PO QAM 05/14/21 05/14/21 History mcg (1,000 unit) capsule (Vitamin D3) hydrochlorothiazide 25 mg tablet 25 mg PO QAM 05/14/21 05/14/21 History lisinopril 30 mg tablet (Zestril) 30 mg PO HS 05/14/21 05/14/21 History Patient History Medical History Allergic rhinitis Benign essential hypertension Diabetes mellitus History of esophageal reflux Hypercholesterolemia Surgical History H/O cardiac catheterization H/O cystoscopy Family History Brother Nephrolithiasis Depression Cancer Father No problems noted. Aunt Cancer Social History Smoking Status: Never smoker Second Hand Exposure: No; Hx Alcohol Use: Yes Alcohol type: beer and hard liquor Hx Substance Use: No Preferred Language: Cook Islander Communication Ability: Effective Hearing Ability: Use of Hearing Aid Chief Controller Center Required: No Beliefs That Will Affect Care: None marital status: Current Living Situation: Spouse Current Living Situation Comment: Lives with current occupational status: retired How many Children do You have: 3 Feels Safe at Home: Yes Childhood Exposure to Second-Hand Smoke: No Physical Activity Frequency: 1-2 Times per Week Seatbelt Use: always Sunscreen Use: Yes Assistive Devices: CPAP, Glasses and Hearing Aid - Bilateral Review of Systems Constitutional: + chills, + sweats and + weakness Respiratory: no dyspnea Cardiovascular: no chest pain Gastrointestinal: + belching, + bloating, + nausea, + vomiting, + excessive flatulence and + diarrhea/loose stools; no abdominal pain Physical Exam Physical Exam: awake/alert Constitutional: well developed, well nourished and comfortable; no acute distress Respiratory: normal respiratory effort; no respiratory distress Cardiovascular: Rate/Rhythm: regular rate Gastrointestinal (Abdomen): Inspection/Auscultation: + abdomen distended Percussion/Palpation: + abdomen tender (mild discomfort to palpation in the LLQ) and abdomen soft; no guarding Results & Data ([facility]) Vital Signs (Past 12 Hours) Vital Signs Temp Pulse Pulse Resp BP BP Pulse Ox 05/14/21 10:00 84 17 126/70 93 05/14/21 09:30 87 12 130/71 95 05/14/21 09:03 83 21 05/14/21 08:30 86 15 135/69 95 05/14/21 08:00 85 18 140/64 95 05/14/21 07:30 84 13 141/67 H 95 05/14/21 07:00 86 16 144/70 H 96 05/14/21 06:50 87 18 149/72 H 95 05/14/21 06:49 87 15 149/72 H 96 05/14/21 05:55 36.5 C 86 86 134/60 134/60 96 05/14/21 05:27 97 H 18 134/[address] abd pelvis IV con only CLINICAL HISTORY: Diffuse abdominal pain, fevers, wbc elevation COMPARISON STUDY: None. TECHNIQUE: A dose lowering technique was utilized adhering to the principles of ALARA. CT DOSE: 1006.84 mGy.cm FINDINGS: Lower chest: Minimal atelectasis at dependent portions of bilateral lower lobes.. Liver: Mild diffuse decrease in attenuation of liver parenchyma. Portal venous gas is seen predominantly within left and caudate lobe of the liver. No focal focal liver lesions are seen. Gallbladder: Is fluid-filled with few gallstones within its dependent portion. Spleen: Normal in size and attenuation. Pancreas: Unremarkable. Adrenal glands: Unremarkable. Kidneys: No evidence of hydronephrosis. Punctate nonobstructive calculus is seen within left renal pelvis. There is homogeneous parenchymal enhancement is seen bilaterally.Small hypoattenuating lesion is seen within left renal parenchyma measuring 5 mm in size which could represent small cyst. Pelvic viscera: Urinary bladder is adequately filled with urine. Prostate gland is not significantly enlarged. Small fat-containing bilateral inguinal hernias are seen. Bowel: Stomach wall is normal in size however there is pneumatosis of the gastric wall with extension of the gas to the portal vein. Small fat containing hiatal hernia. Bowel loops are nondilated. Duodenal diverticulum is seen. Loops of small and proximal large bowel are fluid-filled which could be seen in diarrheal state. Appendix shows normal morphology and gas filled. Diverticulosis of sigmoid colon is seen without evidence of diverticulitis. Peritoneum: There is no intraperitoneal free air or abdominal ascites. Vasculature: Abdominal aorta is normal in course and caliber with scattered partially calcified plaques within its wall. Adenopathy: None. Skeletal structures: Degenerative changes of the spine. IMPRESSION: 1. Pneumatosis involving stomach wall without its thickening and without surrounding fat stranding. Also there is extension of the gas to the portal vein and left lobe of the liver. Above-mentioned findings are nonspecific however ischemia cannot be completely excluded. Findings were discussed with Dr. Mora at 10:13 hours on May 14, 2021 2. Atherosclerosis. 3. Small hiatal hernia. Nondilated loops of bowel. Duodenal diverticulum. Diverticulosis of sigmoid colon without evidence of diverticulitis. 4. Additional findings as above. ACT 112: Negative or not required by law. The above report was generated using voice recognition software. It may contain grammatical, syntax or spelling errors. Electronically signed by: Belkys Moon DO 05/14/2021 10:17 AM PG Care Time/CCT Total # of Minutes Spent Total Time Spent with Patient: Total time spent is greater than 50% in coordination of care (as documented) at patient's floor/unit and/or counseling patient: Coding Level of Care Code 65802 Initial Inpt Care Lvl 3 Diagnoses Nausea vomiting and diarrhea R11.2; R19.7
[2021-05-14] MEDS ORDERED: DEXTROSE 50% 50 ML SYRINGE IV PRN ×2 (11:15→13:50)
[2021-05-14] MEDS ORDERED: GLUCOSE 40% GEL 15 GM TUBE PO PRN ×2 (11:15→13:50)
[2021-05-14] MEDS ORDERED: GLUCAGON FOR INJ 1 MG VIAL IM PRN (11:15)
[2021-05-14] MEDS ORDERED: CARBOHYDRATES FOR HYPOGLYCEMIA PO PRN ×2 (11:15→13:50)
[2021-05-14] MEDS ORDERED: GLUCOSE 10 TABS/TUBE PO PRN ×2 (11:15→13:50)
--- NOTE | 2021-05-14 11:21 | Pharmacy Report ---
Pharmacy Glycemic Short Note 2 - Date of Service May 14, 2021 - Glycemic Short BSG Results (Last 24 hours): 05/14/21 05/14/21 05:36 05:43 Glucose 199 H POC Glucose 169 H OUTPATIENT ANTIDIABETIC REGIMEN: * metformin 1gm PO BID * semaglutide 0.25mg SQ each Thursday * A1c = 7.2% 04/02/21 ASSESSMENT: * Reasonably well controlled type 2 diabetic currently admitted to ED holding bed for hypotensive episode, lactic acidosis, concern for sepsis from possible GI source * BSGs have remained less than 200 since initial presentation. * Will initiate basal / bolus SQ regimen based upon wt. Will utilize "moderate" stress level for Novolog doses. Will utilize "mild" stress doses for the Lantus initially given likelihood of NPO status for unknown period of time. PLAN FOR INPATIENT GLYCEMIC CONTROL: * Hold outpatient oral diabetes medications (metformin, semaglutide) * Basal insulin * Lantus SQ BID per scale: 0 units if BSG less than 130, 9 units if BSG 130 or greater * Bolus insulin * NovoLog per scale ACHS or Q6hrs while NPO * Goal Range: Low 120 mg/dL - High 150 mg/dL * Correction Factor: 25 mg/dL/unit * Nutritional / Prandial insulin per carb ratio of 1 unit per 8 grams CHO consumed PLAN FOR DISCHARGE: * to be determined
--- NOTE | 2021-05-14 13:19 | Pharmacy Report ---
Pharmacy Abx Dose Short Note - Date of Service May 14, 2021 - Assessment & Plan Assessment * 71 year old M receiving VANCOMYCIN + ZOSYN for treatment of sepsis of unknown origin however GI source currently suspected * Day # 1 of antimicrobial therapy. * + h/o recent NVD * Blood Cx's pending * + lactic acidosis + leukocytosis * SCr 1.55 (baseline ~1.3-1.4) eCrCl 40-50s Plan Vancomycin * 1750mg (~19mg/kg load) given x 1 at 0833 * Maint dose: 1000mg (~10.8mg/kg) Q 18 hrs - AUC dosing method * Goal trough assoc w/ this dose 17.9mcg/mL; Goal AUC 400 - 600 * Will check trough level w/ 3rd dose if therapy to continue * If patient remains hemodynamically stable and source felt to be GI, abx could possibly be deescalated to Zosyn monotherapy Zosyn * eCrCl > 20, BMI < 35, 3.375gm ext-infusion Q 8 hours indicated Pharmacy will continue to follow and will adjust dose/frequency as necessary. Thank you.
[2021-05-14] MEDS ORDERED: ALUMINUM/MAGNESIUM SUSP 30 ML UDC PO PRN (13:50)
[2021-05-14] MEDS ORDERED: POLYETHYLENE (MIRALAX) 17 GM PACK PO PRN (13:50)
[2021-05-14] MEDS ORDERED: PIPERACILLIN/TAZOBACTAM 4.5 GM in DEXTROSE 5% 100 ML IV SCH (13:50)
[2021-05-14] MEDS ORDERED: ONDANSETRON INJ 2 MG/ML 2 ML VIAL IV PRN (13:50)
[2021-05-14] MEDS ORDERED: ACETAMINOPHEN 325 MG TAB PO PRN (13:50)
[2021-05-14] MEDS ORDERED: GLUCAGON FOR INJ 1 MG VIAL SQ PRN (13:50)
[2021-05-14] MEDS ORDERED: INSULIN ASPART 100 UNITS/ML 3 ML PEN SC SCH (13:50)
[2021-05-14] MEDS: INSULIN ASPART 100 UNITS/ML 3 ML PEN SC SCH ×2 (13:55→18:06)
[2021-05-14] MEDS ORDERED: MAGNESIUM SULFATE / D5W 1 GM/100 ML BAG IV ONE (15:00)
[2021-05-14 15:03] LABS: Lyme Ab IgG w/WB Rflx Negative (Negative); Lyme Ab IgM w/WB Rflx Negative (Negative)
[2021-05-14] MEDS: PIPERACILLIN/TAZOBACTAM 3.375 GM in DEXTROSE 5% 100 ML IV SCH ×2 (16:02→21:09)
[2021-05-14] MEDS: ASPIRIN 81 MG ECTAB PO SCH (16:02)
[2021-05-14] MEDS: ATORVASTATIN 40 MG TAB PO SCH (16:03)
[2021-05-14] MEDS: ENOXAPARIN INJ 40 MG/0.4 ML SYR SQ SCH (16:03)
[2021-05-14] MEDS ORDERED: INSULIN GLARGINE SOLOSTAR 100 UNITS/ML 3 ML PEN SC SCH (21:00)
[2021-05-14] MEDS: lisinopril 10 MG TAB PO SCH (21:08)
[2021-05-14] MEDS: PANTOprazole 40 MG in SYRINGE 0 ML IV SCH (21:08)
[2021-05-14] MEDS: LATANOPROST 0.005% OP SOLN 2.5 ML BTL OP SCH (21:08)
[2021-05-15] MEDS: INSULIN ASPART 100 UNITS/ML 3 ML PEN SC SCH ×5 (00:37→21:18)
[2021-05-15] MEDS ORDERED: VANCOMYCIN HCL 1,000 MG in SODIUM CHLORIDE 0.9% 250 ML IV SCH (02:00)
[2021-05-15] MEDS: PIPERACILLIN/TAZOBACTAM 3.375 GM in DEXTROSE 5% 100 ML IV SCH ×3 (06:09→20:43)
[2021-05-15 07:40] LABS: Hemoglobin 12.2 g/dL (14.0-18.0); Mean Corpuscular Hemoglobin 29.6 pg (25-34); Mean Corpuscular Hgb Conc 32.1 g/dL (32-36); Mean Corpuscular Volume 92.2 fL (80-100); Mean Platelet Volume 10.4 fL (7.4-10.4); Platelet Count 230 K/uL (130-400); RDW Coefficient of Variation 14.5 % (11.5-14.5); RDW Standard Deviation 49.4 fL (36.4-46.3); Red Blood Count 4.12 M/uL (4.7-6.1); White Blood Count 14.28 K/uL (4.8-10.8)
[2021-05-15] MEDS: ATORVASTATIN 40 MG TAB PO SCH (07:53)
[2021-05-15] MEDS: ASPIRIN 81 MG ECTAB PO SCH (07:53)
[2021-05-15] MEDS: PANTOprazole 40 MG in SYRINGE 0 ML IV SCH ×2 (07:54→21:14)
[2021-05-15 08:15] LABS: BUN Creatinine Ratio 12.4 (10-20); Calcium 7.9 mg/dl (8.5-10.1); Creatinine Clr Calc Pharmacy 64.5 ml/min; Est GFR (African American) 69.8 ml/min; Est GFR (Non-African American) 60.2 ml/min; Potassium 3.7 mmol/L (3.5-5.1)
--- NOTE | 2021-05-15 08:21 | Surgery Progress Note ---
Date of Service May 15, 2021 Assessment & Plan (1) Nausea vomiting and diarrhea: Plan: Patient overall feeling improvement in symptoms compared to admission WBC downtrending at 14 (23). He is afebrile with stable vitals. Cr improved to 1.1 from 1.5 No further episodes of diarrhea or emesis. Had a more formed BM yesterday, sample sent and (-) for cdiff We will re-evaluate again this AM and may consider advancing to clears later today Continue supportive care for now. No plans for surgical intervention at this time as above. feeling better. suspect gastroenteritis and gas in wall of stomach from retching..... clinically doing better. will start clears and can slowly advance. doubt surgical intervention will be necessary. Admission and Anticipated Discharge Date Admission Date: May 14, 2021 Subjective Patient says he had a more formed BM last night. He had some mild bouts of nausea overnight he is unsure if was related to hunger, no bouts of emesis. Overall feels better than when he came in yesterday. Physical Exam Physical Exam: awake/alert Constitutional: comfortable; no acute distress Gastrointestinal (Abdomen): Inspection/Auscultation: + abdomen distended (improved) Percussion/Palpation: + abdomen tender (mild discomfort to palpation in llq) and abdomen soft Results & Data ([facility]) Vital Signs (Past 12 Hours) Vital Signs Temp Pulse Pulse Resp BP Pulse Ox 05/15/21 08:01 36.7 C 71 20 116/70 93 05/15/21 07:16 78 05/15/21 04:00 36.3 C L 69 20 123/74 95 05/15/21 03:09 81 13 96 05/14/21 23:23 78 14 94 05/14/21 23:04 75 05/14/21 23:00 36.7 C 76 20 125/74 94 PG Care Time/CCT Total # of Minutes Spent Total Time Spent with Patient: Total time spent is greater than 50% in coordination of care (as documented) at patient's floor/unit and/or counseling patient: Coding Level of Care Code 31962 Subseq Hosp Care Lvl 3 Diagnoses Nausea vomiting and diarrhea R11.2; R19.7
[2021-05-15 08:35] LABS: Estimated Average Glucose 169 mg/dl; Hemoglobin A1C 7.5 % (4.5-5.6)
--- NOTE | 2021-05-15 12:14 | Pharmacy Report ---
Pharmacy Glycemic Short Note 2 - Date of Service May 15, 2021 - Glycemic Short BSG Results (Last 24 hours): 05/14/21 05/14/21 05/15/21 18:04 21:03 00:25 Glucose POC Glucose 130 H 111 H 133 H 05/15/21 05/15/21 05/15/21 06:03 07:02 11:31 Glucose 118 H POC Glucose 127 H 109 H OUTPATIENT ANTIDIABETIC REGIMEN: * metformin 1gm PO BID * semaglutide 0.25mg SQ each Thursday * A1c = 7.2% 04/02/21 ASSESSMENT: 05/15 * Patient received no insulin yesterday, BSGs well controlled * NPO status this AM, but now changed to diet - plan to utilize stress 2/3 dosing for novolog, will add on Lantus for HS if BSGs >180 PLAN FOR INPATIENT GLYCEMIC CONTROL: * Hold outpatient oral diabetes medications (metformin, semaglutide) * Basal insulin * Lantus SQ HS - 0-10 units if BSG >180 mg/dL * Bolus insulin * NovoLog per scale ACHS or Q6hrs while NPO * Goal Range: Low 120 mg/dL - High 150 mg/dL * Correction Factor: 30 mg/dL/unit * Nutritional / Prandial insulin per carb ratio of 1 unit per 12 grams CHO consumed PLAN FOR DISCHARGE: * A1c 7.5 % - goal <7% * Reasonable to continue home diabetic medications on discharge. Would ensure eGFR more than 45 mL/minute/1.73 m2 for continued metformin use
[2021-05-15] MEDS: ENOXAPARIN INJ 40 MG/0.4 ML SYR SQ SCH (15:33)
--- NOTE | 2021-05-15 19:39 | Hospitalist Progress Note ---
Date of Service May 15, 2021 Assessment & Plan (1) Sepsis: Plan: Patient with what sounds like a hypotensive episode at home. There may been some tonic-clonic movements according to the . Has elevated lactic acid and leukocytosis on presentation with unclear source although abdomen pelvis CT and urinalysis are not completely analyzed yet. Initially chest x-ray is unremarkable and there is no other clinical suspicion of infection outside of these 2 sources. Empirically given vancomycin and Zosyn in the emergency department. Without pulmonary source or skin source we'll hold off on the vancomycin but we will continue Zosyn therapy for intra-abdominal urine coverage. Stool studies will be sent and pending He was volume resuscitated and improved (2) Benign essential hypertension: Plan: Patient's lisinopril will be reduced from 30-10 continue metoprolol, holding hydrochlorothiazide with volume resuscitation, blood pressure is acceptable (3) Diabetes mellitus: Plan: Stop Metformin and semaglutide insulin sliding scale with glycemic management (4) Obstructive sleep apnea: Plan: offer noninvasive positive intervention lesion at night (5) DVT prophylaxis: Plan: Lovenox therapy for DVT prevention Admission and Anticipated Discharge Date Admission Date: May 14, 2021 Subjective this pt is feeling better, surgery is evaluating and progressing diet advancement , continued antibiotics Review of Systems Review of Systems: Mild distress and fatigue no further gi symptoms no headache, no visual changes no speech or swallowing issues no chest pain, pressure or palpitations no shortness of breath, cough or wheezes Initially nausea vomiting diarrhea now with resolution of abdominal symptoms no dysuria, hematuria or frequency no focal joint pain or swelling no back pain, CVA tenderness or radicular pain no bruising, bleeding or rashes no focal signs of weakness or numbness or altered sensation no complaints of anxiety or depression.. Physical Exam Physical Exam: The patient appeared well nourished and normally developed. Vital signs as documented. Head exam is normocephalic atraumatic Neck is without JVD, thyromegaly, or carotid bruits. Lungs are clear to auscultation, no focal loss of breath sounds Cardiac exam, Rhythm is regular.. No murmurs, rubs or gallops. Abdominal exam reveals normoactive bowel sounds, soft distended tympanic Extremities are nonedematous and both pedal pulses are present Neurologic exam is alert and oriented, no focal loss of strength or sensation Skin is without bruises or rashes Psychologically is without concerns for anxiety or depression Results & Data Results & Data ([facility]) Vital Signs (Past 12 Hours) Vital Signs Temp Pulse Pulse Resp BP BP Pulse Ox 05/15/21 18:52 98.4 F 74 20 132/76 95 05/15/21 15:45 98.4 F 73 20 148/83 H 93 05/15/21 15:10 78 05/15/21 13:50 05/15/21 11:29 97.9 F 67 20 131/73 93 05/15/21 08:01 98.1 F 71 20 116/70 93 Pulse Ox 05/15/21 18:52 05/15/21 15:45 05/15/21 15:10 05/15/21 13:50 97 05/15/21 11:29 05/15/21 08:01 PG Care Time/CCT Total # of Minutes Spent Total Time Spent with Patient: Total time spent is greater than 50% in coordination of care (as documented) at patient's floor/unit and/or counseling patient: Coding Level of Care Code 42529 Subseq Hosp Care Lvl 2 Diagnoses Sepsis A41.9; R65.20; G93.40 Sepsis acute organ dysfunction status: with acute organ dysfunction Sepsis type: sepsis due to unspecified organism Severe sepsis acute organ dysfunction type: encephalopathy Severe sepsis shock status: without septic shock Benign essential hypertension I10 Diabetes mellitus E11.9 Obstructive sleep apnea G47.33 DVT prophylaxis Z29.9 (1) Sepsis Sepsis acute organ dysfunction status: with acute organ dysfunction Sepsis type: sepsis due to unspecified organism Severe sepsis acute organ dysfunction type: encephalopathy Severe sepsis shock status: without septic shock Qualified Code(s): A41.9 - Sepsis, unspecified organism; R65.20 - Severe sepsis without septic shock; G93.40 - Encephalopathy, unspecified
[2021-05-15] MEDS: LATANOPROST 0.005% OP SOLN 2.5 ML BTL OP SCH (20:43)
[2021-05-15] MEDS: lisinopril 10 MG TAB PO SCH (20:43)
[2021-05-15] MEDS: INSULIN GLARGINE SOLOSTAR 100 UNITS/ML 3 ML PEN SC SCH (21:18)
[2021-05-16] MEDS: PIPERACILLIN/TAZOBACTAM 3.375 GM in DEXTROSE 5% 100 ML IV SCH ×3 (05:53→21:30)
[2021-05-16] MEDS: ASPIRIN 81 MG ECTAB PO SCH (08:04)
[2021-05-16] MEDS: ATORVASTATIN 40 MG TAB PO SCH (08:04)
[2021-05-16] MEDS: PANTOprazole 40 MG in SYRINGE 0 ML IV SCH ×2 (08:04→21:22)
[2021-05-16] MEDS: INSULIN ASPART 100 UNITS/ML 3 ML PEN SC SCH ×4 (08:05→21:21)
[2021-05-16 09:05] LABS: Hematocrit (blood only) 39.8 % (42-52); Hemoglobin 12.7 g/dL (14.0-18.0); Mean Corpuscular Hemoglobin 29.5 pg (25-34); Mean Corpuscular Hgb Conc 31.9 g/dL (32-36); Mean Corpuscular Volume 92.3 fL (80-100); Mean Platelet Volume 10.7 fL (7.4-10.4); Platelet Count 221 K/uL (130-400); RDW Coefficient of Variation 14.6 % (11.5-14.5); RDW Standard Deviation 49.8 fL (36.4-46.3); Red Blood Count 4.31 M/uL (4.7-6.1); White Blood Count 13.66 K/uL (4.8-10.8)
--- NOTE | 2021-05-16 09:16 | Pharmacy Report ---
Pharmacy Glycemic Short Note 2 - Date of Service May 16, 2021 - Glycemic Short BSG Results (Last 24 hours): 05/15/21 05/15/21 05/15/21 11:31 16:46 20:50 POC Glucose 109 H 98 120 H 05/16/21 07:40 POC Glucose 112 H OUTPATIENT ANTIDIABETIC REGIMEN: * metformin 1gm PO BID * semaglutide 0.25mg SQ each Thursday * A1c = 7.2% 04/02/21 ASSESSMENT: 05/16 * BSGs well-controlled yesterday - ranging 98-127 mg/dL * Received only 3 units of bolus insulin (patient was NPO yesterday) * Diet reordered last evening and continues today * Will maintain current Novolog parameters and utilize Lantus scale this evening 05/15 * Patient received no insulin yesterday, BSGs well controlled * NPO status this AM, but now changed to diet - plan to utilize stress 2/3 dosing for novolog, will add on Lantus for HS if BSGs >180 PLAN FOR INPATIENT GLYCEMIC CONTROL: * Hold outpatient metformin and semaglutide * Basal insulin * Lantus SQ HS - 0-10 units if BSG >180 mg/dL * Bolus insulin * NovoLog per scale ACHS or Q6hrs while NPO * Goal Range: Low 120 mg/dL - High 150 mg/dL * Correction Factor: 30 mg/dL/unit * Nutritional / Prandial insulin per carb ratio of 1 unit per 12 grams CHO consumed PLAN FOR DISCHARGE: * A1c 7.5 % - goal <7% * Reasonable to continue home diabetic medications on discharge. Would ensure eG FR more than 45 mL/minute/1.73 m2 for continued metformin use
[2021-05-16 09:49] LABS: BUN Creatinine Ratio 9.3 (10-20); Creatinine Clr Calc Pharmacy 62.1 ml/min; Est GFR (African American) 67.1 ml/min; Est GFR (Non-African American) 57.9 ml/min; Magnesium 2.1 mg/dl (1.8-2.4); Potassium 3.5 mmol/L (3.5-5.1)
--- NOTE | 2021-05-16 10:19 | Surgery Progress Note ---
Date of Service May 16, 2021 Assessment & Plan (1) Nausea vomiting and diarrhea: Plan: Patient here after multiple bouts of n/v/diarrhea; found to have gas in stomach wall from forceful retching Diet advanced to clears yesterday, he tolerated this well. He did wake up this AM with some increased epigastric discomfort. He is feeling better this AM and has tolerated liquids for bfast. We are okay with advancing to fulls for now. If patient has recurrence of pain we may want to re-engage GI to consider an EGD to rule out possible ulcer No plans for surgical intervention at this time Pt seen/examined with Dr. Mayo as above. exam benign. will advance to full liquids. if pain recurs may need to consider egd this admission. nothing surgical currently. will follow from background. Admission and Anticipated Discharge Date Admission Date: May 15, 2021 Subjective Patient feeling okay this AM. He has been tolerating clear liquids, although early this AM he had an episode of epigastric discomfort with associated sharp pains. This AM he tolerated clears without nausea/vomiting or recurrence of the pain. Physical Exam Physical Exam: awake/alert Gastrointestinal (Abdomen): Percussion/Palpation: abdomen soft Results & Data ([facility]) Vital Signs (Past 12 Hours) Vital Signs Temp Pulse Pulse Resp BP Pulse Ox 05/16/21 07:56 36.6 C 67 17 115/66 91 05/16/21 03:44 72 05/16/21 03:12 68 14 93 05/16/21 02:57 36.4 C L 68 20 125/75 93 05/15/21 23:44 36.5 C 69 18 146/78 H 95 05/15/21 23:00 80 14 95 PG Care Time/CCT Total # of Minutes Spent Total Time Spent with Patient: Total time spent is greater than 50% in coordination of care (as documented) at patient's floor/unit and/or counseling patient: Coding Level of Care Code 72074 Subseq Hosp Care Lvl 2 Diagnoses Nausea vomiting and diarrhea R11.2; R19.7
--- NOTE | 2021-05-16 12:20 | Gastrointestinal Consultation ---
Date of Consultation May 16, 2021 Assessment & Plan (1) Abnormal CT scan, stomach: -Patient has eaten today, but would plan to keep patient NPO after midnight for EGD tomorrow -Continue IV Protonix 40 mg BID -Avoid NSAIDs Supervising Physician Co-Signing Physician Notes Agree with ANNY Wilkinson as above Abd: Soft, NT, ND, +BS Continue current therapy and supportive care Proceed with EGD tomorrow History of Present Illness Reason for Consultation: Pneumatosis of stomach wall Attending Physician: Kurtis Mcmahon MD History of Present Illness Patient is a 71 yo male with PMH of allergic rhinitis, HTN, HLD, and DM2 with abdominal pain, indigestion, & bloating. CT imaging upon admission indicated pneumatosis of the stomach wall without thickening. Fat stranding was noted as well. The gas extended to the portal vein on this CT scan. He has been seen by general surgeon. No surgical interventions have occurred, though general surgery advised patient have an EGD. Patient is currently on Protonix 40 mg BID. He reports a history of indigestion, but has never had an EGD nor has he taken PPI therapy long-term. He notes that last night he had indigestion and bloating in the middle of the night despite a very light diet. He denies pertinent family history. He recently took a lot of Ibuprofen due to sciatica. Denies hematemesis, melena. He previously had been experiencing forceful vomiting. This has subsided. Allergies Allergy/AdvReac Type Severity Reaction Status Date / Time No Known Allergies Allergy Unknown Verified 05/14/21 07:58 Home Medications Medication Instructions Recorded Confirmed Type ketoconazole 2 % shampoo 1 appln TOPICAL .COMPLEX ml 06/07/19 05/14/21 History latanoprost 0.005 % eye drops 1 drops OPB HS #1 ml 07/20/19 05/14/21 History (Xalatan) blood sugar diagnostic (True #100 ea 09/04/20 05/14/21 Rx Metrix Glucose Test Strip) semaglutide (Ozempic) 0.25 mg SQ .weekly #1.5 ml 10/10/20 05/14/21 Rx metformin 1,000 mg tablet 1,000 mg PO BID #180 tab 04/05/21 05/14/21 Rx aspirin 81 mg tablet,delayed 81 mg PO QAM 05/14/21 05/14/21 History release (Aspirin Low Dose) atorvastatin 40 mg tablet (Lipitor) 40 mg PO QAM 05/14/21 05/14/21 History cholecalciferol (vitamin D3) 25 25 mcg PO QAM 05/14/21 05/14/21 History mcg (1,000 unit) capsule (Vitamin D3) hydrochlorothiazide 25 mg tablet 25 mg PO QAM 05/14/21 05/14/21 History lisinopril 30 mg tablet (Zestril) 30 mg PO HS 05/14/21 05/14/21 History Patient History Medical History Allergic rhinitis Benign essential hypertension Diabetes mellitus History of esophageal reflux Hypercholesterolemia Surgical History H/O cardiac catheterization H/O cystoscopy Family History Brother Nephrolithiasis Depression Cancer Father No problems noted. Aunt Cancer Social History Smoking Status: Never smoker Second Hand Exposure: No; Hx Alcohol Use: Yes Alcohol type: beer and hard liquor Hx Substance Use: No Preferred Language: Icelandic Communication Ability: Effective Hearing Ability: Use of Hearing Aid Wirer Helper Required: No Beliefs That Will Affect Care: None marital status: Current Living Situation: Spouse Current Living Situation Comment: Lives with current occupational status: retired How many Children do You have: 3 Other Information That Helps Us Care for You: No Feels Safe at Home: Yes Safety Concerns: Feels Safe At This Time Childhood Exposure to Second-Hand Smoke: No Physical Activity Frequency: 1-2 Times per Week Seatbelt Use: always Sunscreen Use: Yes Assistive Devices: None Review of Systems Constitutional: no fever and no chills Respiratory: no cough Cardiovascular: no chest pain Gastrointestinal: + abdominal pain, + belching, + bloating and + nausea Psychiatric: no problem reported Physical Exam Constitutional: WD/WN, vitals as above Respiratory: normal respiratory effort, lungs clear to auscultation Cardiovascular: RRR, no murmur, no edema Gastrointestinal (Abdomen): normal bowel sounds, soft, nontender, no hepatosplenomegaly Musculoskeletal: Head/Neck/Chest: normocephalic Psychiatric: Orientation: alert and oriented x 3 Results & Data ([facility]) Vital Signs (Past 12 Hours) Vital Signs Temp Pulse Pulse Resp BP Pulse Ox 05/16/21 11:31 36.7 C 66 15 152/89 H 94 05/16/21 07:56 36.6 C 67 17 115/66 91 05/16/21 03:44 72 05/16/21 03:12 68 14 93 05/16/21 02:57 36.4 C L 68 20 125/75 93 PG Care Time/CCT Total # of Minutes Spent Total Time Spent with Patient: Total time spent is greater than 50% in coordination of care (as documented) at patient's floor/unit and/or counseling patient: Coding Level of Care Code 59708 Initial Inpt Care Lvl [address] scan, stomach R93.3
[2021-05-16] MEDS: ENOXAPARIN INJ 40 MG/0.4 ML SYR SQ SCH (16:06)
--- NOTE | 2021-05-16 17:40 | Hospitalist Progress Note ---
Date of Service May 16, 2021 Assessment & Plan (1) Sepsis: Plan: Patient with what sounds like a hypotensive episode at home. There may been some tonic-clonic movements according to the . Has elevated lactic acid and leukocytosis on presentation with unclear source although abdomen pelvis CT showing pneumatosis in the wall of the stomach air in the portal vein and left lobe of the liver. initially chest x-ray is unremarkable and there is no other clinical suspicion of infection outside of these 2 sources. Empirically given vancomycin and Zosyn in the emergency department. Without pulmonary source or skin source we'll hold off on the vancomycin but we will continue Zosyn therapy for intra-abdominal urine coverage. Stool studies will be sent and pending He was volume resuscitated and improved Sepsis is now resolved exact etiology is unclear (2) Abdominal discomfort: Plan: With pneumatosis of the stomach and air in the portal vein system, concern could be this is could have been a result of the vomiting and barotrauma. However with persistent symptoms concern could be if there was an occult lesion in the area endoscopic evaluation will be undertaken antibiotics to be continued until that time (3) Benign essential hypertension: Plan: Patient's lisinopril was reduced from 30-10 continue metoprolol, holding hydrochlorothiazide with volume resuscitation, blood pressure is acceptable (4) Diabetes mellitus: Plan: Stoping Metformin and semaglutide insulin sliding scale with glycemic management (5) Obstructive sleep apnea: Plan: offer noninvasive positive intervention lesion at night (6) DVT prophylaxis: Plan: Lovenox therapy for DVT prevention Admission and Anticipated Discharge Date Admission Date: May 15, 2021 Subjective Patient is an episode of abdominal pain and nausea overnight which was significant. Subsequently concerns for advancing diet or had. Gastroenterology did see the patient and are planning on endoscopy on 05/17/2021 Review of Systems Review of Systems: Mild distress and fatigue no further gi symptoms no headache, no visual changes no speech or swallowing issues no chest pain, pressure or palpitations no shortness of breath, cough or wheezes Initially nausea vomiting diarrhea now with resolution of abdominal symptoms no dysuria, hematuria or frequency no focal joint pain or swelling no back pain, CVA tenderness or radicular pain no bruising, bleeding or rashes no focal signs of weakness or numbness or altered sensation no complaints of anxiety or depression.. Physical Exam Physical Exam: The patient appeared well nourished and normally developed. Vital signs as documented. Head exam is normocephalic atraumatic Neck is without JVD, thyromegaly, or carotid bruits. Lungs are clear to auscultation, no focal loss of breath sounds Cardiac exam, Rhythm is regular.. No murmurs, rubs or gallops. Abdominal exam reveals normoactive bowel sounds, soft distended tympanic Extremities are nonedematous and both pedal pulses are present Neurologic exam is alert and oriented, no focal loss of strength or sensation Skin is without bruises or rashes Psychologically is without concerns for anxiety or depression Results & Data Results & Data ([facility]) Vital Signs (Past 12 Hours) Vital Signs Temp Pulse Pulse Resp BP Pulse Ox 05/16/21 16:23 74 05/16/21 15:32 98.1 F 64 20 133/77 92 05/16/21 11:31 98.1 F 66 15 152/89 H 94 05/16/21 07:56 97.9 F 67 17 115/66 91 PG Care Time/CCT Total # of Minutes Spent Total Time Spent with Patient: Total time spent is greater than 50% in coordination of care (as documented) at patient's floor/unit and/or counseling patient: Coding Level of Care Code 70552 Subseq Hosp Care Lvl 2 Diagnoses Sepsis A41.9; R65.20; G93.40 Sepsis acute organ dysfunction status: with acute organ dysfunction Sepsis type: sepsis due to unspecified organism Severe sepsis acute organ dysfunction type: encephalopathy Severe sepsis shock status: without septic shock Benign essential hypertension I10 Diabetes mellitus E11.9 Obstructive sleep apnea G47.33 DVT prophylaxis Z29.9 Abdominal discomfort R10.9 (1) Sepsis Sepsis acute organ dysfunction status: with acute organ dysfunction Sepsis type: sepsis due to unspecified organism Severe sepsis acute organ dysfunction type: encephalopathy Severe sepsis shock status: without septic shock Qualified Code(s): A41.9 - Sepsis, unspecified organism; R65.20 - Severe sepsis without septic shock; G93.40 - Encephalopathy, unspecified
[2021-05-16] MEDS: INSULIN GLARGINE SOLOSTAR 100 UNITS/ML 3 ML PEN SC SCH (21:21)
[2021-05-16] MEDS: lisinopril 10 MG TAB PO SCH (21:22)
[2021-05-16] MEDS: LATANOPROST 0.005% OP SOLN 2.5 ML BTL OP SCH (21:22)
[2021-05-17] MEDS: PIPERACILLIN/TAZOBACTAM 3.375 GM in DEXTROSE 5% 100 ML IV SCH ×2 (06:15→14:57)
[2021-05-17 07:39] LABS: Hematocrit (blood only) 38.9 % (42-52); Hemoglobin 12.4 g/dL (14.0-18.0); Mean Corpuscular Hemoglobin 29.5 pg (25-34); Mean Corpuscular Hgb Conc 31.9 g/dL (32-36); Mean Corpuscular Volume 92.6 fL (80-100); Mean Platelet Volume 10.1 fL (7.4-10.4); Platelet Count 224 K/uL (130-400); RDW Coefficient of Variation 14.5 % (11.5-14.5); RDW Standard Deviation 49.2 fL (36.4-46.3); White Blood Count 12.29 K/uL (4.8-10.8)
[2021-05-17 08:15] LABS: Alanine Aminotransferase 48 U/L (12-78); Albumin Level 2.9 gm/dl (3.4-5.0); Aspartate Aminotransferase 33 U/L (15-37); BUN Creatinine Ratio 7.2 (10-20); Blood Urea Nitrogen 9 mg/dl (7-18); Calcium 8.4 mg/dl (8.5-10.1); Carbon Dioxide 27 mmol/L (21-32); Chloride 108 mmol/L (98-107); Creatinine Clr Calc Pharmacy 59.6 ml/min; Est GFR (African American) 63.9 ml/min; Est GFR (Non-African American) 55.2 ml/min; Glucose 97 mg/dl (70-99); Magnesium 2.1 mg/dl (1.8-2.4); Potassium 3.6 mmol/L (3.5-5.1); Sodium 140 mmol/L (136-145)
[2021-05-17 08:17] LABS: Alkaline Phosphatase 65 U/L (45-117); Bilirubin Direct < 0.1 mg/dl (0-0.2); Bilirubin,Total 0.4 mg/dl (0.2-1)
--- NOTE | 2021-05-17 08:17 | Surgery Progress Note ---
Date of Service May 17, 2021 Assessment & Plan (1) Nausea vomiting and diarrhea: Plan: doing well. will advance diet. scheduled to f/u with GI for egd/colon no surgical indications. will s/o. (2) Abdominal discomfort: (3) Abnormal CT scan, stomach: Admission and Anticipated Discharge Date Admission Date: May 15, 2021 Subjective pt seen. doing well. [place] diet yesterday with no recurrent symptoms. no pain.no nausea Physical Exam Constitutional: WD/WN, vitals as above no acute distress and not ill appearing Eyes: PERRL, conjunctivae normal, anicteric sclerae EOM intact bilaterally ENMT: external ear and nose normal, oropharynx normal Ears: no hearing impairment Neck: trachea midline, no thyromegaly Respiratory: normal respiratory effort; no respiratory distress and does not use accessory muscles Cardiovascular: Rate/Rhythm: regular rate and regular rhythm Gastrointestinal (Abdomen): normal bowel sounds, soft, nontender, no hepatosplenomegaly Skin: no rashes, warm and dry Psychiatric: Orientation: alert, oriented x 3 and cooperative Results & Data ([facility]) Vital Signs (Past 12 Hours) Vital Signs Temp Pulse Pulse Resp BP Pulse Ox 05/17/21 07:41 36.8 C 64 18 143/78 H 93 05/17/21 03:00 36.6 C 70 20 146/72 H 96 05/17/21 00:00 64 05/16/21 23:54 68 14 92 05/16/21 23:00 36.7 C 66 20 132/79 94 PG Care Time/CCT Total # of Minutes Spent Total Time Spent with Patient: Total time spent is greater than 50% in coordination of care (as documented) at patient's floor/unit and/or counseling patient: Coding Level of Care Code 97840 Subseq Hosp Care Lvl 2 Diagnoses Nausea vomiting and diarrhea R11.2; R19.7 Abdominal discomfort R10.[address] scan, stomach R93.3
[2021-05-17] MEDS: INSULIN ASPART 100 UNITS/ML 3 ML PEN SC SCH ×3 (08:28→17:34)
[2021-05-17] MEDS: PANTOprazole 40 MG in SYRINGE 0 ML IV SCH (09:00)
[2021-05-17] MEDS: ASPIRIN 81 MG ECTAB PO SCH (09:00)
[2021-05-17] MEDS: ATORVASTATIN 40 MG TAB PO SCH (09:00)
--- NOTE | 2021-05-17 09:38 | History & Physical Bridge Note ---
Date of Service May 17, 2021 History & Physical Bridge Note I have examined the patient, reviewed the History & Physical and in the interval since the performance of the History & Physical I have noted the following changes of clinical significance: no changes noted. Patient has been NPO since last evening before midnight. Keep NPO and proceed with EGD today. Supervising Physician Co-Signing Physician Notes Agree with ANNY Wilkinson as above Abd: Soft, NT, ND, +BS Continue supportive care and current therapy Proceed with EGD now
--- NOTE | 2021-05-17 11:18 | Anesthesiology Consultation ---
Date of Service May 17, 2021 Assessment & Plan (1) Encounter for pre-operative examination: Chart Review Chart Review: Acceptable Risk for Surgery and Patient NOT seen in Pre Admission Testing Consults Requested none History Surgery Operation Date: 05/17/21 17:00 Proposed Procedures p Esophagogastroduodenoscopy Dr Connor Goldman Case, DO Height/Weight Height: 5 ft 9 in Weight: 99 kg Allergies Allergy/AdvReac Type Severity Reaction Status Date / Time No Known Allergies Allergy Unknown Verified 05/14/21 07:58 Medications Home Medications Medication Instructions Recorded Confirmed Last Taken ketoconazole 2 % shampoo 1 appln TOPICAL .COMPLEX ml 06/07/19 05/14/21 05/12/21 latanoprost 0.005 % eye drops 1 drops OPB HS #1 ml 07/20/19 05/14/21 05/12/21 (Xalatan) blood sugar diagnostic (True #100 ea 09/04/20 05/14/21 Unknown Metrix Glucose Test Strip) semaglutide (Ozempic) 0.25 mg SQ .weekly #1.5 ml 10/10/20 05/14/21 05/12/21 metformin 1,000 mg tablet 1,000 mg PO BID #180 tab 04/05/21 05/14/21 05/13/21 10:00 aspirin 81 mg tablet,delayed 81 mg PO QAM 05/14/21 05/14/21 05/13/21 10:00 release (Aspirin Low Dose) atorvastatin 40 mg tablet (Lipitor) 40 mg PO QAM 05/14/21 05/14/21 05/13/21 10:00 cholecalciferol (vitamin D3) 25 25 mcg PO QAM 05/14/21 05/14/21 05/13/21 10:00 mcg (1,000 unit) capsule (Vitamin D3) hydrochlorothiazide 25 mg tablet 25 mg PO QAM 05/14/21 05/14/21 05/13/21 10:00 lisinopril 30 mg tablet (Zestril) 30 mg PO HS 05/14/21 05/14/21 05/12/21 Active Medications Generic Name Dose Route Start Last Admin Trade Name Freq PRN Reason Stop Dose Admin Aspirin 81 mg 05/14/21 15:00 05/17/21 09:00 Aspirin 81 Mg Ectab PO 06/13/21 14:59 81 mg QAM STEVE Administration Atorvastatin Calcium 40 mg 05/14/21 15:00 05/17/21 09:00 Atorvastatin 40 Mg Tab PO 06/13/21 14:59 40 mg QAM STEVE Administration Enoxaparin Sodium 40 mg 05/14/21 15:00 05/16/21 16:06 Enoxaparin Inj 40 Mg/0.4 Ml Syr SQ 06/13/21 14:59 40 mg Q24H STEVE Administration Pantoprazole Sodium 40 mg/ 10 mls @ 5 mls/min 05/14/21 21:00 05/17/21 09:00 Syringe IV 06/13/21 20:59 5 mls/min BID STEVE Administration Piperacillin Sod/Tazobactam 115 mls @ 28.75 mls/hr 05/14/21 14:00 05/17/21 10:29 Sod 3.375 gm/ Dextrose IV 05/24/21 13:59 Infused Q8H STEVE Infusion Protocol Insulin Aspart 0 units 05/15/21 12:15 05/17/21 08:28 Insulin Aspart 100 Units/Ml 3 Ml Pen SC 06/14/21 12:14 Not Given ACHS STEVE Latanoprost 1 drops 05/14/21 21:00 05/16/21 21:22 Latanoprost 0.005% Op Soln 2.5 Ml Btl OP 06/13/21 20:59 1 drops HS STEVE Administration Lisinopril 10 mg 05/14/21 21:00 05/16/21 21:22 Lisinopril 10 Mg Tab PO 06/13/21 20:59 10 mg HS STEVE Administration Past Medical History Medical History Allergic rhinitis Benign essential hypertension Diabetes mellitus History of esophageal reflux Hypercholesterolemia Past Family History Family History Brother Nephrolithiasis Depression Cancer Father No problems noted. Aunt Cancer Past Surgical History Surgical History H/O cardiac catheterization H/O cystoscopy Social History Smoking Status: Never smoker Hx Alcohol Use: Yes Alcohol type: beer and hard liquor alcohol intake frequency: holidays/special occasions only Hx Substance Use: No Physical Exam Vital Signs Last Vital Signs Temp 36.8 C 05/17/21 07:41 Pulse 69 05/17/21 10:44 Resp 18 05/17/21 07:41 BP 143/78 H 05/17/21 07:41 Pulse Ox 93 05/17/21 07:41 Testing Laboratory Results 05/17/21 07:16 05/17/21 07:16 Hemoglobin A1c 7.5 % (4.5-5.6) H 05/15/21 07:02 Urine Color Yellow 05/14/21 07:40 Urine Appearance Clear (Clear) 05/14/21 07:40 Urine pH 5.5 (4.5-7.5) 05/14/21 07:40 Ur Specific [place] 1.044 (1.000-1.030) H 05/14/21 07:40 Urine Protein Negative (Negative) 05/14/21 07:40 Urine Glucose (UA) Negative (Negative) 05/14/21 07:40 Urine Ketones Negative (Negative) 05/14/21 07:40 Urine Nitrite Negative (Negative) 05/14/21 07:40 Ur Leukocyte Esterase Negative (Negative) 05/14/21 07:40 05/14/21 22:55 Escherichia coli Shiga Toxins Test - Preliminary Stool Stool Culture - Preliminary No Salmonella isolated to date, No Shigella isolated to date, No Campylobacter jejuni isolated to date. 05/14/21 06:49 Aerobic Blood Culture - Preliminary Blood No growth in Aerobic bottle after 48 hours. Anaerobic Blood Culture - Preliminary No growth in Anaerobic bottle after 48 hours. 05/14/21 06:49 Aerobic Blood Culture - Preliminary Blood No growth in Aerobic bottle after 48 hours. Anaerobic Blood Culture - Preliminary No growth in Anaerobic bottle after 48 hours. 05/17/21 07:32 POC Glucose 97 Electrocardiogram Date: 05/14/21 Findings: + NSR @ (92) Low voltage QRS Borderline ECG When compared with ECG of 07-MAR-2008 10:43, No significant change was found
[2021-05-17] MEDS ORDERED: MIDAZOLAM HCL 1 MG/ML 2ML VIAL ONE (12:44)
[2021-05-17] MEDS ORDERED: LIDOCAINE 2% 2 ML VIAL/AMP(20MG/ML) INFIL ONE (12:47)
[2021-05-17] MEDS ORDERED: ONDANSETRON INJ 2 MG/ML 2 ML VIAL ONE (12:47)
[2021-05-17] MEDS ORDERED: PROPOFOL IV EMULSION 10 MG/ML 20 ML VIAL IV ONE (12:47)
--- NOTE | 2021-05-17 13:44 | GI REPORT ---
Patient Name: Thomas Amin Procedure Date: 05/17/2021 12:57 PM Date of : 1950 Admit Type: Inpatient Age: 71 Gender: Male Attending MD: Bryan Ryan DO Procedure: Upper GI endoscopy Providers: Bryan Ryan DO Referring MD: Primitivo Sheehan Md Indications: Abnormal CT of the GI tract Medicines: Monitored Anesthesia Care Complications: No immediate complications. Estimated Blood Loss: Estimated blood loss: none. Procedure: Pre-Anesthesia Assessment: - Prior to the procedure, a History and Physical was performed, and patient medications and allergies were reviewed. The patient's tolerance of previous anesthesia was also reviewed. The risks and benefits of the procedure and the sedation options and risks were discussed with the patient. All questions were answered, and informed consent was obtained. Prior Anticoagulants: The patient has taken Lovenox (enoxaparin), last dose was 1 day prior to procedure. ASA Grade Assessment: III - A patient with severe systemic disease. After reviewing the risks and benefits, the patient was deemed in satisfactory condition to undergo the procedure. After obtaining informed consent, the endoscope was passed under direct vision. Throughout the procedure, the patient's blood pressure, pulse, and oxygen saturations were monitored continuously. The Endoscope was introduced through the mouth, and advanced to the second part of duodenum. The upper GI endoscopy was accomplished without difficulty. The patient tolerated the procedure well. Findings: The examined esophagus was normal. A small hiatal hernia was present. Localized moderate inflammation characterized by congestion (edema) and erythema was found in the gastric fundus. Biopsies were taken with a cold forceps for histology. Localized moderate inflammation characterized by erosions and erythema was found in the gastric antrum. Biopsies were taken with a cold forceps for histology. The examined duodenum was normal. Impression: - Normal esophagus. - Small hiatal hernia. - Gastritis. Biopsied. - Gastritis. Biopsied. - Normal examined duodenum. Recommendation: - [facility]. - Advance diet as tolerated. - Await pathology results. - Continue present medications. Bryan Ryan DO 05/17/2021 1:43:53 PM This report has been signed electronically. Note Initiated On: 05/17/2021 12:57 PM Number of Addenda: 0 I attest to the content of the Intraoperative Record and orders documented therein, exceptions below {[id number]}
--- NOTE | 2021-05-17 14:17 | Anesthesiology Progress Note ---
Date of Service May 17, 2021 Anesthesia Post Procedure Vital Signs Vital Signs: Temp Pulse Pulse Resp BP Pulse Ox 05/17/21 14:02 72 18 133/78 96 05/17/21 13:47 36 C L 73 16 140/78 96 05/17/21 12:12 36 C L 77 18 163/91 H 95 05/17/21 11:29 36.7 C 70 16 149/83 H 95 05/17/21 10:44 69 05/17/21 07:41 36.8 C 64 18 143/78 H 93 05/17/21 03:00 36.6 C 70 20 146/72 H 96 05/17/21 00:00 64 05/16/21 23:54 68 14 92 05/16/21 23:00 36.7 C 66 20 132/79 94 05/16/21 20:00 36.6 C 64 20 127/76 93 05/16/21 16:23 74 05/16/21 15:32 36.7 C 64 20 133/77 92 Transfer of Care Handoff Completed per policy Notes Mental Status: alert / awake / arousable and participated in evaluation Nausea / Vomiting: adequately controlled Pain: adequately controlled Airway Patency, RR, SpO2: stable & adequate BP & HR: stable & adequate Hydration State: stable & adequate Anesthetic Complications: no major complications apparent and Pt Satisfied with anesthetic care
[2021-05-17] MEDS: ENOXAPARIN INJ 40 MG/0.4 ML SYR SQ SCH (17:33)
--- NOTE | 2021-05-17 20:52 | Discharge Summary ---
Date of Service May 17, 2021 Admission HPI Per Admitting Provider 71 yr old male with history JOSE, Allergies, GERD, HTN, HLP, DMII who had diarrhea/nausea illness last week, with initial resolution, but then rapid worsening over last few hours. Syncope with seizure like activity while help him up on toilet earlier. On arrival patient appears ill, dehydrated and slightly confused. Given IV fluids and work-up initiated. Labs with WBC elevation and thus blood cultures, lactate and further fluids ordered. Patient vastly improved with IV fluids. With symptoms felt that CT a/p results are pending at this time . CT head and cxr already had been done and negative. Patient given empiric abx once lactate returned elevated though by this time he appears quite well and no distress. Patient breathing comfortably without further abdominal pain. Both episodes of diarrhea were preceded 2 days prior or day and a half prior by attending a [employer] related community event which included food. Reportedly no one else was ill. None of his family members all had any illness and they had eaten similar food that he had. Currently he is resting comfortably Principal Diagnosis Pneumatosis involving stomach wall, suspected to be due to vomiting Portal vein air secondary to above Discharge Exam Constitutional WD/WN, vitals as above Eyes EOM intact bilaterally; no conjunctival abnormality ENMT external ear and nose normal, oropharynx normal Neck trachea midline, no thyromegaly normal visual inspection Respiratory normal respiratory effort, lungs clear to auscultation no respiratory distress Cardiovascular RRR, no murmur, no edema Gastrointestinal (Abdomen) Inspection/Auscultation: abdomen normal to inspection; abdomen not distended Musculoskeletal no cyanosis or clubbing, extremities motor strength 5/5 Skin no rashes, warm and dry Neurologic moves all extremities and awake Psychiatric Orientation: alert, oriented to person and cooperative Discharge Data Allergies Allergy/AdvReac Type Severity Reaction Status Date / Time No Known Allergies Allergy Unknown Verified 05/17/21 12:10 Consultations 05/14/21 07:31 ED Decision to Admit Stat 05/14/21 10:23 Consult General Surgery Stat 05/16/21 10:37 Consult Gastroenterology Routine Procedures Performed Operation Date: 05/17/21 17:00 Actual Procedures p EGD Biopsy Cytology - Bryan Goldman Case, DO Ordered Studies 05/14/21 05:46 CT head/brain wo con Stat 05/14/21 06:04 CT abd pelvis IV con only Stat Hospital Course (1) Sepsis: Patient with what sounds like a hypotensive episode at home. There may been some tonic-clonic movements according to the . Has elevated lactic acid and leukocytosis on presentation with unclear source although abdomen pelvis CT showing pneumatosis in the wall of the stomach air in the portal vein and left lobe of the liver. initially chest x-ray is unremarkable and there is no other clinical suspicion of infection outside of these 2 sources. Empirically given vancomycin and Zosyn in the emergency department. Without pulmonary source or skin source we'll hold off on the vancomycin but we will continue Zosyn therapy for intra-abdominal urine coverage. Stool studies will be sent and pending. He was volume resuscitated and improved -> Symptomatically improved over 2 days in the hospital. EGD on 05/17 showed only two areas of moderate inflammation. Per GI recs, discharged on PPI PO BID x 4-6 weeks and 2 week follow up with their service. Followed by surgery as well while in the hospital, but signed off at discharge. - Biopsies taken during EGD; follow up with their service. (2) Abdominal discomfort: With pneumatosis of the stomach and air in the portal vein system, concern could be this is could have been a result of the vomiting and barotrauma. However with persistent symptoms concern could be if there was an occult lesion in the area endoscopic evaluation will be undertaken antibiotics to be continued until that time (3) Benign essential hypertension: Patient's lisinopril was reduced while inpatient. - BP back to normal on discharge; resume home meds. (4) Diabetes mellitus: Held Metformin and semaglutide while inpatient. - Insulin sliding scale with glycemic management (5) Obstructive sleep apnea: offer noninvasive positive intervention lesion at night (6) DVT prophylaxis: Lovenox therapy for DVT prevention Total Time Total Time Spent Total Time Spent (In Minutes): 35 Discharge Plan Discharge Items Patient Disposition: Home - Self-Care Reason For Visit: CONCERN FOR SEPSIS Discharge Diagnosis: Some air bubbles in the lining of the stomach, suspected to be due to vomiting Portal vein air secondary to above Activity: Resume your previous activity Non-emergency contact: Primary Care Provider and [facility] Call non-emergency contact if: you have any medication questions and your symptoms worsen Follow-up/Referrals: Te Izaguirre MD [Primary Care Provider] - Abel Younger MD [Physician] - (Please see Dr. Younger or Dr. Ryan in 2 weeks.) Diet: Carb Consistent or DM2 Addtl Attending Provider Instructions: Mr. Amin, You came to the hospital with nausea and vomiting. We treated you with IV fluids and antibiotics, and you are feeling better. We were worried about some CT scan findings that showed some air bubbles in the wall of your stomach. This may have been due to all your vomiting. The GI team did an EGD (scope) of your stomach which showed no major issues. It did show some irritation of the stomach in two spots, but no large ulcer or active bleeding. The GI team would like you to take an acid-blocking medication (called a PPI) twice a day for 4 weeks. They would like to see you in follow-up in 2 weeks. Please hold your aspirin for an additional 7 days, then you can restart it. Restarting it would be May 23. Please be sure that the [facility] office contacts you for an appointment in 2-4 weeks. Please see your PCP in 1-2 weeks for a check-up on how you are doing. Pending Studies at Discharge: Yes Stand-Alone Forms: My [email or web address], Smoking Cessation Medications and DC Order Prescriptions: New pantoprazole 40 mg tablet,delayed release (DR/EC) 40 mg PO BID Qty: 60 RF: 0 Continued (DME) True Metrix Glucose Test Strip Strip See Dose Instructions .ROUTE .MEDSUPPLY Qty: 100 RF: 1 Ozempic 0.25 mg or 0.5 mg(2 mg/1.5 mL) pen injector 0.25 mg SQ .weekly Qty: 1.5 RF: 4 ketoconazole 2 % shampoo 1 appln topical .COMPLEX RF: 0 latanoprost [Xalatan] 0.005 % drops 1 drops OPB HS Qty: 1 RF: 0 metformin 1,000 mg tablet 1,000 mg PO BID Qty: 180 RF: 1 aspirin [Aspirin Low Dose] 81 mg Tablet,Delayed Release (Dr/Ec) 81 mg PO QAM RF: 0 cholecalciferol (vitamin D3) [Vitamin D3] 25 mcg (1,000 unit) Capsule 25 mcg PO QAM RF: 0 atorvastatin [Lipitor] 40 mg tablet 40 mg PO QAM RF: 0 hydrochlorothiazide 25 mg tablet 25 mg PO QAM RF: 0 Changed lisinopril [Zestril] 30 mg tablet 30 mg PO HS Qty: 0 RF: 0 Discharge Orders: Discharge Order (Routine); Ordered 05/17/21 Ordered By: Primitivo Ramirez/Other Patient Handouts: A1C, Managing Type 2 Diabetes Admission Data Admit Date/Time: 05/15/21 19:39 Attending Provider: Primitivo Sheehan Admit Provider: Kurtis Mcmahon Primary Care Provider: Te Izaguirre Other Providers: Ronald Mayo ; Abel Younger ; Primitivo Sheehan Other Interventions: Discharge Summary Assessment (RN) Last Done: 05/17/21 17:45 Coding Level of Care Code D/C DAY MANAGEMENT >30 MINS Diagnoses Sepsis A41.9; R65.20; G93.40 Sepsis acute organ dysfunction status: with acute organ dysfunction Sepsis type: sepsis due to unspecified organism Severe sepsis acute organ dysfunction type: encephalopathy Severe sepsis shock status: without septic shock Abdominal discomfort R10.9 Benign essential hypertension I10 Diabetes mellitus E11.9 Obstructive sleep apnea G47.33 DVT prophylaxis Z29.9
== END 2021-05-17 18:28 | disposition home or self-care (01) | DRG 872 ==
LOC: EDINP 05:24 → ED 05:24 → 2N 11:05 → SUATTDRO 05-15 19:39

== ENCOUNTER 2023-03-02 14:18 | Observation (INO) ==
--- NOTE | 2023-03-02 14:59 | ED Triage Note ---
Date of Service March 02, 2023 History of Present Illness This patient was briefly evaluated while in triage. An abbreviated physical exam was performed. This patient is a 72-year-old Male who presents to the ED for evaluation of epigastric and chest pain. Pain goes into shoulder. He comes via EMS, and pain was initially 6/10. He did get ASA and NTG prehospital and it is now 2/10. He thinks it may be his gallbladder as symptoms began yesterday after eating dinner. Physical Exam Limited Triage Exam: VITALS: Vitals are noted on the nurse's note and reviewed by myself. Vital signs stable. GENERAL: Well-developed, well-nourished, white male, who is in no acute distress and resting comfortably. Patient is cooperative with the examination. HEART: Regular rate and rhythm without murmurs gallops or rubs. LUNGS: Clear to auscultation bilaterally without wheezes, rales or rhonchi. No retractions or accessory muscle use. NEURO: Patient was alert and oriented to person place and time. CN II through XII grossly intact. Initial orders for labs and / or imaging were placed and patient was placed in the waiting area until a bed is available. Please see further documentation for the full ED course.
[2023-03-02 15:31] LABS: Basophils # (auto) 0.06 K/uL (0-0.2); Basophils % (auto) 0.5 %; Eosinophils # (auto) 0.42 K/uL (0-0.50); Eosinophils % (auto) 3.5 %; Hematocrit (blood only) 41.3 % (42.0-52.0); Hemoglobin 13.1 g/dl (14.0-18.0); Immature Granulocytes # (auto) 0.09 K/uL (0.01-0.20); Immature Granulocytes % (auto) 0.8 %; Lymphocytes # (auto) 1.64 K/uL (1.2-3.4); Lymphocytes % (auto) 13.8 %; Mean Corpuscular Hemoglobin 28.9 pg (25.0-34.0); Mean Corpuscular Hgb Conc 31.7 g/dL (32.0-36.0); Mean Corpuscular Volume 91.2 fL (80.0-100.0); Mean Platelet Volume 10.2 fL (9.4-12.4); Monocytes # (auto) 0.93 K/uL (0.11-0.59); Monocytes % (auto) 7.8 %; Neutrophils # (auto) 8.76 K/uL (1.40-6.50); Neutrophils % (auto) 73.6 %; Platelet Count 264 K/uL (130-400); RDW Coefficient of Variation 14.6 % (11.5-14.5); RDW Standard Deviation 48.5 fL (36.4-46.3); Red Blood Count 4.53 M/uL (4.70-6.10)
[2023-03-02 15:49] LABS: Albumin Level 3.9 gm/dl (3.4-5.0); BUN Creatinine Ratio 17.8 (10-20); Bilirubin,Total 0.3 mg/dl (0.2-1.0); Calcium 9.3 mg/dl (8.6-10.3); Creatinine Clr Calc Pharmacy 62.8 ml/min; Est GFR (Non-African American) 60.4 ml/min; Globulin 3.9 gm/dl (2.5-4.0); Total Protein 7.8 gm/dl (6.0-8.3)
[2023-03-02 15:54] LABS: Troponin I High Sensitivity 5.1 pg/ml (0-20)
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
--- NOTE | 2023-03-02 17:04 | XRay Report ---
XR chest 1V portable HISTORY: 72 years-old Male Chest pain, nonspecific acute chest pain COMPARISON: 05/21/2021 TECHNIQUE: AP view of the chest FINDINGS: Cardiac mediastinal and hilar silhouettes are within normal limits. No pneumothorax, pleural effusion , airspace consolidation or pulmonary edema. Atherosclerosis of the aorta. Degenerative changes of th e shoulders and spine. IMPRESSION: No acute process. ACT 112: Negative or not required by law. The above report was generated using voice recognition software. It may contain grammatical, syntax o r spelling errors. Electronically signed by: Henry Beaver M.D. 03/02/2023 5:02 PM
--- NOTE | 2023-03-02 17:12 | Electrocardiogram Report ---
Test Reason : Blood Pressure : / mmHG Vent. Rate : 078 BPM Atrial Rate : 078 BPM P-R Int : 162 ms QRS Dur : 078 ms QT Int : 374 ms P-R-T Axes : 050 094 049 degrees QTc Int : 426 ms Normal sinus rhythm Rightward axis Borderline ECG When compared with ECG of 14-MAY-2021 05:31, No significant change was found Confirmed by Elijah Lauren ([id number]) on 03/02/2023 5:12:18 PM Referred By: Confirmed By:Mann Lauren
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
[2023-03-02] MEDS ORDERED: GLUCAGON FOR INJ 1 MG VIAL SQ PRN (20:12)
[2023-03-02] MEDS ORDERED: GLUCOSE 40% GEL 15 GM TUBE PO PRN (20:12)
[2023-03-02] MEDS ORDERED: GLUCOSE 10 TAB/TUBE PO PRN (20:12)
[2023-03-02] MEDS ORDERED: DEXTROSE 50% 50 ML SYRINGE IV PRN (20:12)
[2023-03-02] MEDS ORDERED: CARBOHYDRATES FOR HYPOGLYCEMIA PO PRN (20:12)
[2023-03-02] MEDS ORDERED: LATANOPROST 0.005% OP SOLN 2.5 ML BTL OPB STA (20:23)
[2023-03-02] MEDS: SODIUM CHLORIDE 0.9% 1000ML 1,000 ML IV SCH (20:55)
[2023-03-02] MEDS ORDERED: INSULIN ASPART PER UNIT CHARGE SC SCH (21:00)
[2023-03-02] MEDS ORDERED: ACETAMINOPHEN 325 MG TAB PO PRN (22:05)
[2023-03-02] MEDS ORDERED: ALBUTEROL HFA 8 GM INHALER INH PRN (22:05)
[2023-03-02] MEDS ORDERED: ONDANSETRON INJ 2 MG/ML 2 ML VIAL IV PRN (22:05)
[2023-03-03] MEDS: SODIUM CHLORIDE 0.9% 1000ML 1,000 ML IV SCH ×2 (06:18→16:53)
[2023-03-03] MEDS ORDERED: Nursing to Pharmacy Communication SCH (06:45)
[2023-03-03] MEDS: INSULIN ASPART PER UNIT CHARGE SC SCH ×2 (07:44→11:50)
[2023-03-03 08:08] LABS: Estimated Average Glucose 157 mg/dl; Hemoglobin A1C 7.1 % (4.5-5.6)
[2023-03-03 08:18] LABS: Hematocrit (blood only) 38.6 % (42.0-52.0); Hemoglobin 12.4 g/dl (14.0-18.0); Mean Corpuscular Hgb Conc 32.1 g/dL (32.0-36.0); Mean Corpuscular Volume 90.4 fL (80.0-100.0); Mean Platelet Volume 10.4 fL (9.4-12.4); Platelet Count 243 K/uL (130-400); RDW Coefficient of Variation 14.8 % (11.5-14.5); Red Blood Count 4.27 M/uL (4.70-6.10); White Blood Count 7.96 K/ul (4.8-10.8)
[2023-03-03] MEDS: HEPARIN SOD 5,000 UNIT/0.5 ML VIAL SQ SCH ×3 (08:28→16:57)
--- NOTE | 2023-03-03 08:37 | XRay Report ---
XR KUB/Abdomen 1 view CLINICAL HISTORY: epigastric pain, distention TECHNIQUE: 1 view of the abdomen was obtained. Comparison: Comparison is made to a radiograph 05/21/2021 FINDINGS: Cholelithiasis is again seen. Evaluation for renal stones is limited by overlying bowel however there is suggestion of bilateral renal stones. No ureteral stones are seen. Degenerative changes are seen in the visualized skeleton. The bowel gas pattern is nonobstructive. A moderate amount of stool is no feliciano within the large bowel. IMPRESSION: Limited exam with suggestion of bilateral nephrolithiasis. No ureteral or pelvic stones. ACT 112: Negative or not required by law. Electronically signed by: Kwame Vail M.D. 03/03/2023 8:35 AM
[2023-03-03 08:40] LABS: Chol HDL Ratio 4.9 (0-5); Creatinine Clr Calc Pharmacy 70.4 ml/min; Est GFR (African American) 79.7 ml/min; Est GFR (Non-African American) 68.8 ml/min; Potassium 4.1 mmol/L (3.5-5.1)
[2023-03-03 08:46] LABS: Troponin I High Sensitivity 4.6 pg/ml (0-20)
[2023-03-03] MEDS ORDERED: SERTRALINE HCL 50 MG TABLET PO SCH (09:00)
[2023-03-03] MEDS ORDERED: ASPIRIN 81 MG ECTAB PO SCH (09:00)
[2023-03-03] MEDS ORDERED: lisinopril 10 MG TAB PO SCH (09:00)
[2023-03-03] MEDS ORDERED: PANTOprazole 40 MG TAB PO SCH (09:00)
--- NOTE | 2023-03-03 17:21 | Discharge Summary ---
Date of Service March 03, 2023 Admission HPI Per Admitting Provider 72 y/o male w/ PMHx of anxiety/depression, HTN, DM2, cholelithiasis, GERD, seizure x1, HLD, hypereosinophilic syndrome, glaucoma, RLS, and JOSE on CPAP who presents w/ epigastric pressure/heaviness that started yesterday after eating brisket at dinner, 6/10 severity. He went to bed with this discomfort as he has had multiple similar episodes in the pasts chronically, at least once a week, and usually after eating. He has had over a year of increased belching. This morning, he woke up with the same epigastric discomfort, though slightly milder and w/ newly accompanying jaw and left ear (and reportedly to shoulder per documentation) discomfort. It was worse with certain positions when laying down and slightly pleuritic. He spoke to his PCP and then called EMS. The pain improved substantially to a 2/10 intensity EMS administered ASA and nitro. In the ED, upon ambulation, he noted some exertional epigastric/low chest discomfort w/o radiation. He states he has had 2 stress tests many years ago, 1 treadmill, and one pharmacologic. He had the cardiac cath after the treadmill test was reportedly abnormal, but no stent placement was indicated. Covid pos in the ED. He has had 2-3 days of fatigue and malaise otherwise no symptoms. No cough. Chronic clear rhinorrhea that he attributes to allergies. Patient received the bivalent covid booster 09/2022. He denies current epigastric discomfort. Patient's is at bedside. Admission Exam Per Admitting Provider General: Grossly A&O. NAD. Cooperative. HEENT: Atraumatic, normocephalic. EOMI. No pain w/ neck ROM. Pulm: CTAB. -wheezes, -rales, -rhonchi. No respiratory distress. Cardiac: RRR, -mrg. Radial pulses intact and symmetrical. No LE edema. Msk: No chest wall or upper abdominal TTP. Abdominal: Nontender, soft. Mildly distended. Neg Avery's. Back: No CVA TTP. Neuro: Normal strength and sensation of extremities. Principal Diagnosis Epigastric discomfort, gastritis Discharge Exam General: No acute distress HEENT: PERRLA. Normal conjunctiva, anicteric sclera. Oropharynx normal. Respiratory: Normal respiratory effort, CTABL. Cardiovascular: RRR without murmurs, gallops, or rubs. No pedal edema. GI: Soft abdomen with normal bowel sounds heard on auscultation. Nontender x4 quadrants Neuro: Alert and oriented x3. Discharge Data Allergies Allergy/AdvReac Type Severity Reaction Status Date / Time iodine Allergy Intermediate Cough Verified 03/02/23 17:33 Consultations 03/02/23 18:02 ED Decision to Admit Stat Hospital Course (1) Epigastric pain: 72 y/o male w/ PMHx of anxiety/depression, HTN, DM2, cholelithiasis, GERD, seizure x1, HLD, hypereosinophilic syndrome, glaucoma, RLS, and JOSE on CPAP who presents w/ epigastric pressure/heaviness since yesterday. - work up for chest pain with cardiac risk factors: trend hstrop q8h. cardiology consult as would likely require a pharmacologic stress test (covid pos) - relieved by nitro. not reproducible. questionably exertional. however, with the duration reported of symptoms, would expect a pos hstrop. ecg reassuring - episode of reported radiation to jaw and left ear: recent chiropractic adjustment noted; no current neck pain; defer CTA - per lack of abd ttp on exam and neg Avery's, will defer CT abd/pelv w/ IV con (would require pretreatment given allergy). Reassess if clinical change. - abd distention w/ mild upper abd MSK tightness. KUB revealed stool burden. - lipase neg * Evaluated by cardiology: Symptoms not cardiac in origin. No need for stress test inpatient or outpatient. * Continue omeprazole 40 mg daily. Recommend addition of famotidine 20 mg daily as well. (2) COVID: - Saturating 98% on room air. WBC 11.90. Symptoms: Mild fatigue/malaise x2-3 days. Discussed w/ pharmacy. Typically, Paxlovid is not initiated in the inpatient setting. * Recommend outpatient follow-up, initiation of Paxlovid within 5-day window of symptom onset. (3) Diabetes mellitus, type 2: - hold home semaglutide and metformin -A.m. A1c: - SSI and check BSG achs (4) Benign essential hypertension: - continue home lisinopril (5) CKD (chronic kidney disease): - Cr 1.2, at baseline. approx late stage 2. Follow BMP. (6) Obstructive sleep apnea: - qhs cpap (7) Hypercholesterolemia: - patient was on atorvastatin 40mg daily, last rx 11/11/22. * Cholesterol within normal limits. Patient reports he stopped taking statin because of muscle aches. Hypertriglyceridemia (209). * Recommend initiation of cholesterol medication PCP follow-up, ideally statin therapy. If poorly tolerated, then consider fenofibrate. (8) Depression: - continue home sertraline (9) Glaucoma: - continue home latanoprost Total Time Total Time Spent Total Time Spent (In Minutes): Please see attending attestation. Discharge Plan Discharge Items Patient Disposition: Home - Self-Care Reason For Visit: CHEST PAIN Discharge Diagnosis: Epigastric pain, gastritis Activity: Per Instructions section Follow-up/Referrals: Te Izaguirre MD [Primary Care Provider] - Addtl Attending Provider Instructions: Deaidalia Guzman, You came to the hospital because of stomach pain that was concerning for an acute coronary event. We evaluated you in the emergency room and decided to admit you for further work-up. We also consulted with our bulk gas specialist for further diagnostic certainty. Fortunately, the results of her diagnostic testing strongly suggest that your symptoms were not cardiac in origin. Therefore, we feel you are ready to be discharged home. 1. We made no changes to your current medications. You may continue to take them as previously directed unless otherwise instructed to by your primary care physician. 2. For your abdominal pain or epigastric pain, we recommend that you consider adding a medication called famotidine, or Pepcid, to your daily regimen. If you are unsure, feel free to bring this up with your primary care physician. 3. Regarding your blood cholesterol level, we are aware that you previously stopped taking a statin because of muscle aches. However, in light of your elevated triglyceride level, we recommend that you be restarted on either lower dose statin, or, if you continue to have side effects from the statin, a medication known as fenofibrate. We also recommend that you have this discussion with your primary care physician. 4. Regarding a positive COVID test, even though you are currently mildly symptomatic, we recommend that you contact your PCP to be prescribed Paxlovid, which you should take within 5 days of your symptom onset. This is important because patients with risk factors like yours (age >65, patient diabetes mellitus, weight >40 kg etc.) are at elevated risk for progression into severe COVID-19, and later in the course, when it is no longer medically useful to start Paxlovid. If you are unsure, you have further questions, you should contact your PCP over the phone to discuss. It has been a pleasure to care for you here at [facility]. If you have any questions or concerns about your care, contact us at [phone]. Pending Studies at Discharge: No Stand-Alone Forms: My [facility], Smoking Cessation Medications and DC Order Prescriptions: Continued omeprazole 40 mg capsule,delayed release(DR/EC) 40 mg PO DAILY Qty: 90 2RF (DME) True Metrix Glucose Test Strip Strip See Dose Instructions .ROUTE .MEDSUPPLY Qty: 100 1RF Dose Instruction: As directed Rx Instructions: As directed: once daily dx: e11.9 albuterol sulfate 90 mcg/actuation HFA aerosol inhaler 2 puff inhalation Q4H PRN (Reason: shortness of breath) Qty: 1 4RF ketoconazole 2 % shampoo 1 appln topical DIRECTED PRN (Reason: NEEDED) Patient Comments: 1 applic topical as directed; Rx Instructions: 1 applic topical as directed; latanoprost [Xalatan] 0.005 % drops 1 drops OPB HS Qty: 1 metformin 500 mg tablet 500 mg PO BID Qty: 180 3RF Ozempic 0.25 mg or 0.5 mg(2 mg/1.5 mL) pen injector 0.5 mg SQ .weekly Qty: 4.5 4RF Hold Instructions: epigastric pain Rx Instructions: Thursday aspirin [Elier Low Dose Aspirin] 81 mg Tablet,Delayed Release (Dr/Ec) 81 mg PO QAM Patient Comments: ON HOLD cholecalciferol (vitamin D3) [Vitamin D3] 25 mcg (1,000 unit) Capsule 25 mcg PO QAM lisinopril 30 mg tablet 30 mg PO DAILY Rx Instructions: TAKE 1 TABLET BY MOUTH EVERY DAY sertraline 50 mg tablet 50 mg PO DAILY Rx Instructions: 1 po daily Discharge Orders: Discharge Order (Routine); Ordered 03/03/23 Ordered By: Nasrin Ramirez/Other Patient Handouts: Managing Type 2 Diabetes Admission Data Admit Date/Time: 03/02/23 20:11 Attending Provider: Nito Cobian Admit Provider: Dom Montgomery Primary Care Provider: Te Izaguirre Other Providers: Dom Montgomery Supervising Physician Co-Signing Physician Notes Attending attestation Pt seen and examined in concert with Dr. Oviedo. In agreement with the documented findings as noted in the resident documentation with any exceptions or additions as noted here. Resolved epigastric pain and resolving neck fullness sensation without nausea. On examination, S1/S2 nl RRR no MCG. CTAB. Abd NT/ND BS+ve Epigastric pain concerning for cardiac equivalent - cardiology consult - evaluation as noted without indication of cardiac cause. Agree w/ PPI/H2 therapy and avoidance of heavy foods. encourage to pursue previously discussed evaluation for impact of gallbladder disease with PCP following discharge. HLD - not currently on statin 2/2 reported myalgias. would consider low dose statin if tolerated for prevention in the outpatient in the setting of DMII, HTN as noted. Else see resident documentation as noted. Total attending physician time spent with this patient's care on the day of discharge: 35 minutes. Resident Activity Tracking Resident Involvement: Resident Care Provided Care Provided: Adult Hospital Medicine
[2023-03-03] MEDS ORDERED: LATANOPROST 0.005% OP SOLN 2.5 ML BTL OPB SCH (21:00)
--- NOTE | 2023-03-08 21:50 | Billing Data ---
Date of Service March 02, 2023 Coding Level of Care Code 70771 INT INP/OBS CARE
== END 2023-03-03 19:12 | disposition home or self-care (01) ==
LOC: ED 14:18 → 2S 14:18 → SUATTDRO 19:03 → 2S 21:33